=== PATIENT | female | born 1935 | race African-American/Black ===

== ENCOUNTER 2019-08-31 08:48 | Inpatient (IN) | payer OTHER ==
[~2019-08-31] VITALS: Ht 165.1 cm; Wt 49.9 kg
[~2019-08-31 08:48] MED LIST: Aspirin PO; GABA-529; HYDR-3927 PO; Isosorb Dinit/Hydralazine Hcl PO; LOVA40TA73; OLME20TA13
[2019-08-31] MEDS: ACETAMINOPHEN 325MG TABLET PO ONE ×2 (09:37→09:43)
[2019-08-31] MEDS ORDERED: ACETAMINOPHEN 500MG TABLET PO SCH (09:45)
[2019-08-31 10:19] LABS: HEMATOCRIT. 32.1 % (36.0-48.0); HEMOGLOBIN. 10.7 g/dL (12.0-16.0); MEAN CORPUSCULAR HEMOGLOBIN 31.8 pg (28.0-32.0); MEAN CORPUSCULAR VOLUME 95.4 fL (81.0-99.0); PLATELET 168 x1000/uL (130-400); RED BLOOD CELL COUNT 3.37 mill/uL (4.2-5.4); RED CELL DISTRIBUTION WIDTH 16.2 % (11.6-14.6)
[2019-08-31 10:28] LABS: CHLORIDE 92 mEq/L (98-107)
[2019-08-31 10:29] LABS: INR 1.1; PROTHROMBIN TIME 11.5 sec (9.6-11.0)
[2019-08-31 10:43] LABS: PLATELET ESTIMATE NORMAL
[2019-08-31 16:00] VITALS: BP 104/39
[2019-08-31 17:03] VITALS: BP 104/39
[2019-08-31] MEDS ORDERED: ONDANSETRON HCL 4MG/2ML INJ IV PRN (19:15)
[2019-08-31] MEDS ORDERED: PIPERACILLIN/TAZ 3.375G PREMIX 50 ML IV SCH (19:15)
[2019-08-31] MEDS ORDERED: CLONIDINE 0.1MG TABLET PO PRN (19:15)
[2019-08-31] MEDS ORDERED: IPRATROPIUM/ALBUTEROL 0.5-3(2.5)MG/3ML NEB HHN PRN (19:15)
[2019-08-31] MEDS ORDERED: ENOXAPARIN 40MG/0.4ML SYR SUBCUT SCH (19:15)
[2019-08-31] MEDS ORDERED: DOCUSATE SODIUM 100MG CAPSULE PO PRN (19:15)
[2019-08-31] MEDS ORDERED: DEXTROSE 50% WATER 50ML SYRINGE IV PRN (19:45)
[2019-08-31 20:00] VITALS: BP 100/42
[2019-08-31] MEDS: INSULIN LISPRO 100 UNITS/ML SUBCUT SCH (21:00)
[2019-08-31] MEDS: PIPERACILLIN/TAZOBACTAM 2.25 G in DEXTROSE 5% WATER 50 ML IV SCH (21:34)
[2019-08-31] MEDS: GABAPENTIN 100MG CAPSULE PO SCH (21:35)
[2019-08-31] MEDS: ATORVASTATIN CALCIUM 40MG TABLET PO SCH (21:35)
[2019-08-31] MEDS: ENOXAPARIN 30MG/0.3ML SYR SUBCUT SCH (21:35)
[2019-08-31] MEDS: SODIUM CHLORIDE 0.9% INJ 3ML FLUSH IVF SCH (21:36)
[2019-08-31] MEDS: BLOOD SUGAR DIAGNOSTIC STRIP TEST SCH (21:36)
[2019-08-31] MEDS: HYDRALAZINE HCL 50MG TABLET PO SCH (21:36)
[2019-08-31 23:43] LABS: BASOPHILS % 0.3 % (0.0-2.0); EOSINOPHILS % 0.7 % (0.0-5.0); HEMATOCRIT. 31.2 % (36.0-48.0); HEMOGLOBIN. 10.3 g/dL (12.0-16.0); LYMPHOCYTES % 8.9 % (20.0-50.0); MEAN CORPUSCULAR HEMOGLOBIN 31.8 pg (28.0-32.0); MEAN PLATELET VOLUME 8.9 fl (7.4-10.4); MONOCYTES % 8.5 % (2.0-8.0); NEUTROPHILS % 81.6 % (40.0-76.0); PLATELET 143 x1000/uL (130-400); RED BLOOD CELL COUNT 3.25 mill/uL (4.2-5.4); RED CELL DISTRIBUTION WIDTH 15.9 % (11.6-14.6)
[2019-09-01] VITALS: BP 107/32
[2019-09-01 04:00] VITALS: BP 106/30
[2019-09-01] MEDS: SODIUM CHLORIDE 0.9% INJ 3ML FLUSH IVF SCH ×3 (05:47→21:47)
[2019-09-01] MEDS: PIPERACILLIN/TAZOBACTAM 2.25 G in DEXTROSE 5% WATER 50 ML IV SCH ×3 (05:47→21:47)
[2019-09-01] MEDS: GABAPENTIN 100MG CAPSULE PO SCH ×3 (05:47→21:47)
[2019-09-01] MEDS: HYDRALAZINE HCL 50MG TABLET PO SCH ×3 (05:48→21:52)
[2019-09-01] MEDS: BLOOD SUGAR DIAGNOSTIC STRIP TEST SCH ×4 (06:07→22:00)
[2019-09-01 08:00] VITALS: BP 144/48
[2019-09-01] MEDS: ASPIRIN 325MG EC TABLET PO SCH (08:40)
[2019-09-01] MEDS: LOSARTAN POTASSIUM 100 MG TABLET PO SCH (08:41)
[2019-09-01] MEDS: ISOSORBIDE DINITRATE 30MG TABLET PO SCH ×3 (08:41→17:09)
[2019-09-01] MEDS: INSULIN LISPRO 100 UNITS/ML SUBCUT SCH ×5 (08:48→22:00)
[2019-09-01 12:00] VITALS: BP 133/47
[2019-09-01] MEDS ORDERED: HYDROCODONE/ACETAMINOPHEN 5/325MG TABLET PO PRN (14:45)
[2019-09-01] MEDS ORDERED: DIPHENHYDRAMINE 50MG/ML VIAL IV PRN (14:45)
[2019-09-01 16:00] VITALS: BP 158/53
[2019-09-01 16:08] LABS: HEMOGLOBIN. 10.3 g/dL (12.0-16.0); MEAN CORPUSCULAR VOLUME 96.1 fL (81.0-99.0); MEAN PLATELET VOLUME 8.9 fl (7.4-10.4); PLATELET 150 x1000/uL (130-400); RED BLOOD CELL COUNT 3.22 mill/uL (4.2-5.4); RED CELL DISTRIBUTION WIDTH 16.1 % (11.6-14.6)
[2019-09-01 16:16] LABS: CHLORIDE 96 mEq/L (98-107)
[2019-09-01] MEDS ORDERED: VANCOMYCIN 1 G PREMIX 200 ML IV NR (16:30)
[2019-09-01 18:25] LABS: PLATELET ESTIMATE NORMAL
[2019-09-01 20:00] VITALS: BP 99/39
[2019-09-01] MEDS: ENOXAPARIN 30MG/0.3ML SYR SUBCUT SCH (21:46)
[2019-09-01] MEDS: ATORVASTATIN CALCIUM 40MG TABLET PO SCH (21:52)
[2019-09-02] VITALS (7 sets, daily range): BP systolic 98–158; BP diastolic 40–80
[2019-09-02] MEDS: ACETAMINOPHEN 325MG TABLET PO PRN ×2 (02:23→22:09)
[2019-09-02] MEDS: HYDRALAZINE HCL 50MG TABLET PO SCH ×3 (06:00→22:08)
[2019-09-02] MEDS: PIPERACILLIN/TAZOBACTAM 2.25 G in DEXTROSE 5% WATER 50 ML IV SCH ×3 (06:31→21:48)
[2019-09-02] MEDS: SODIUM CHLORIDE 0.9% INJ 3ML FLUSH IVF SCH ×2 (06:31→22:07)
[2019-09-02] MEDS: BLOOD SUGAR DIAGNOSTIC STRIP TEST SCH ×4 (06:32→20:50)
[2019-09-02] MEDS: GABAPENTIN 100MG CAPSULE PO SCH ×3 (06:32→22:09)
[2019-09-02] MEDS: INSULIN LISPRO 100 UNITS/ML SUBCUT SCH ×4 (06:38→22:12)
[2019-09-02 07:45] LABS: HEMATOCRIT. 28.5 % (36.0-48.0); HEMOGLOBIN. 9.5 g/dL (12.0-16.0); MEAN CORPUSCULAR HEMOGLOBIN 31.9 pg (28.0-32.0); MEAN CORPUSCULAR VOLUME 95.6 fL (81.0-99.0); MEAN PLATELET VOLUME 8.8 fl (7.4-10.4); PLATELET 149 x1000/uL (130-400); RED BLOOD CELL COUNT 2.98 mill/uL (4.2-5.4); RED CELL DISTRIBUTION WIDTH 16.7 % (11.6-14.6)
[2019-09-02 08:02] LABS: PHOSPHORUS 3.9 mg/dL (2.5-4.9)
[2019-09-02 08:05] LABS: T4 FREE 0.97 ng/dL (0.76-1.46)
[2019-09-02] MEDS: ISOSORBIDE DINITRATE 30MG TABLET PO SCH ×3 (09:00→17:53)
[2019-09-02] MEDS: LOSARTAN POTASSIUM 100 MG TABLET PO SCH (09:00)
[2019-09-02] MEDS: ASPIRIN 325MG EC TABLET PO SCH (09:15)
[2019-09-02 12:02] LABS: PLATELET ESTIMATE NORMAL
[2019-09-02] MEDS ORDERED: VANCOMYCIN 500 MG PREMIX 100 ML IV SCH (18:00)
[2019-09-02] MEDS ORDERED: LOPERAMIDE HCL 2MG CAPSULE PO NR (19:42)
[2019-09-02] MEDS: ENOXAPARIN 30MG/0.3ML SYR SUBCUT SCH (22:10)
[2019-09-02] MEDS: ATORVASTATIN CALCIUM 40MG TABLET PO SCH (22:11)
[2019-09-03 04:00] VITALS: BP_SYST 140; BP_SYST 163; BP_DIAS 57; BP_DIAS 86
[2019-09-03] MEDS: SODIUM CHLORIDE 0.9% INJ 3ML FLUSH IVF SCH ×3 (05:21→13:38)
[2019-09-03] MEDS: PIPERACILLIN/TAZOBACTAM 2.25 G in DEXTROSE 5% WATER 50 ML IV SCH ×3 (06:11→13:38)
[2019-09-03] MEDS: GABAPENTIN 100MG CAPSULE PO SCH ×2 (06:12→13:24)
[2019-09-03] MEDS: BLOOD SUGAR DIAGNOSTIC STRIP TEST SCH ×2 (06:12→12:02)
[2019-09-03] MEDS: HYDRALAZINE HCL 50MG TABLET PO SCH ×2 (06:12→13:24)
[2019-09-03] MEDS: INSULIN LISPRO 100 UNITS/ML SUBCUT SCH ×2 (06:54→13:23)
[2019-09-03 07:40] LABS: HEMATOCRIT. 30.9 % (36.0-48.0); HEMOGLOBIN. 10.1 g/dL (12.0-16.0); MEAN CORPUSCULAR HEMOGLOBIN 31.3 pg (28.0-32.0); MEAN CORPUSCULAR VOLUME 95.9 fL (81.0-99.0); MEAN PLATELET VOLUME 9.1 fl (7.4-10.4); PLATELET 177 x1000/uL (130-400); RED BLOOD CELL COUNT 3.22 mill/uL (4.2-5.4); RED CELL DISTRIBUTION WIDTH 16.5 % (11.6-14.6)
[2019-09-03 07:51] LABS: PHOSPHORUS 3.8 mg/dL (2.5-4.9)
[2019-09-03 08:00] VITALS: BP 141/56
[2019-09-03] MEDS: LOSARTAN POTASSIUM 100 MG TABLET PO SCH (08:41)
[2019-09-03] MEDS: ISOSORBIDE DINITRATE 30MG TABLET PO SCH ×3 (08:41→13:41)
[2019-09-03] MEDS: ASPIRIN 325MG EC TABLET PO SCH (08:41)
[2019-09-03 10:44] LABS: PLATELET ESTIMATE NORMAL
[2019-09-03 16:31] VITALS: BP 157/48
[2019-09-03] MEDS ORDERED: LACTOBACILLUS GG CAPSULE PO SCH (17:00)
[2019-09-03] MEDS ORDERED: VANCOMYCIN HCL 1000 MG/20 ML ORAL PO SCH (18:00)
[2019-09-03] MEDS ORDERED: VANCOMYCIN HCL 1 GM/VIAL PO SCH (18:00)
== END 2019-09-03 17:15 | disposition home or self-care (01) | DRG 371 ==
LOC: ER 08:48 → 6WST 11:48 → EDBEDREQSVC 11:50 → EDBEDREQ 11:50 → ENRESERV 14:32 → ER 15:33 → 7WST 09-01 17:53 → 8WST 09-03 01:28
PROVIDERS: ADMIT Ophthalmology; ATTEND Ophthalmology
PROC: 5A1D70Z Performance of Urinary Filtration, Intermittent, Less than 6 Hours Per Day (ICD-10-PCS; principal; 2019-08-31)
PROC: 5A1D70Z Performance of Urinary Filtration, Intermittent, Less than 6 Hours Per Day (ICD-10-PCS; 2019-09-02)
DX: A04.72 Enterocolitis due to Clostridium difficile, not specified as recurrent (principal); N18.6 End stage renal disease; I13.2 Hypertensive heart and chronic kidney disease with heart failure and with stage 5 chronic kidney disease, or end stage renal disease; I50.32 Chronic diastolic (congestive) heart failure; E87.1 Hypo-osmolality and hyponatremia; E87.5 Hyperkalemia; E11.22 Type 2 diabetes mellitus with diabetic chronic kidney disease; I25.10 Atherosclerotic heart disease of native coronary artery without angina pectoris; J44.9 Chronic obstructive pulmonary disease, unspecified; D72.829 Elevated white blood cell count, unspecified; Z20.828 Contact with and (suspected) exposure to other viral communicable diseases; I27.20 Pulmonary hypertension, unspecified; K57.90 Diverticulosis of intestine, part unspecified, without perforation or abscess without bleeding; D64.9 Anemia, unspecified; F03.90 Unspecified dementia, unspecified severity, without behavioral disturbance, psychotic disturbance, mood disturbance, and anxiety; I69.321 Dysphasia following cerebral infarction; Z95.1 Presence of aortocoronary bypass graft; Z95.0 Presence of cardiac pacemaker; Z82.49 Family history of ischemic heart disease and other diseases of the circulatory system
CPT/HCPCS: 36415; 71045; 80048; 80053; 80061; 80202; 82962; 83036; 83605; 83735; 84100; 84145; 84439; 84443; 84484; 85025; 86850; 86900; 87493; 93005; 99291; J1650; J1815; J2543; J3370; J7060; U0003-CS

== ENCOUNTER 2021-10-21 08:43 | Inpatient (IN) | payer BC, OTHER ==
[~2021-10-21] VITALS: Ht 154.9 cm; Wt 37.3 kg
[2021-10-21 09:20] LABS: BASOPHILS % 1.2 % (0.0-2.0); EOSINOPHILS % 0.6 % (0.0-5.0); HEMATOCRIT. 33.2 % (36.0-48.0); HEMOGLOBIN. 10.8 g/dL (12.0-16.0); LYMPHOCYTES % 16.4 % (20.0-50.0); MEAN CORPUSCULAR HEMOGLOBIN 32.6 pg (28.0-32.0); MEAN CORPUSCULAR VOLUME 100.5 fL (81.0-99.0); MEAN PLATELET VOLUME 7.6 fl (7.4-10.4); MONOCYTES % 12.6 % (2.0-8.0); NEUTROPHILS % 69.2 % (40.0-76.0); PLATELET 301 x1000/uL (130-400); RED BLOOD CELL COUNT 3.31 mill/uL (4.2-5.4); RED CELL DISTRIBUTION WIDTH 16.4 % (11.6-14.6)
[2021-10-21 09:29] LABS: CHLORIDE 95 mEq/L (98-107)
[2021-10-21 10:09] LABS: CREATINE KINASE 134 IU/L (26-192)
[2021-10-21] MEDS ORDERED: ACETAMINOPHEN 325MG TABLET PO PRN ×2 (16:30→18:45)
[2021-10-21] MEDS ORDERED: ONDANSETRON HCL 4MG/2ML INJ IV PRN (16:30)
[2021-10-21] MEDS ORDERED: DEXTROSE 50% WATER 50ML SYRINGE IV PRN (17:00)
[2021-10-21] MEDS: DEXT 5%/0.45% NACL 1000ML 1,000 ML IV SCH (17:00)
[2021-10-21] MEDS: BLOOD SUGAR DIAGNOSTIC STRIP TEST SCH ×3 (17:07→21:00)
[2021-10-21 17:35] VITALS: BP 96/43
[2021-10-21] MEDS ORDERED: PIPERACILLIN/TAZ 3.375G PREMIX 50 ML IV SCH (18:45)
[2021-10-21] MEDS ORDERED: TRAMADOL 50MG TABLET PO PRN (19:00)
[2021-10-21] MEDS ORDERED: NALOXONE HCL 0.4MG/ML VIAL IV PRN (19:15)
[2021-10-21] MEDS: ENOXAPARIN 30MG/0.3ML SYR SUBCUT SCH (20:32)
[2021-10-21] MEDS: ATORVASTATIN CALCIUM 40MG TABLET PO SCH (20:32)
[2021-10-21] MEDS: FAMOTIDINE 20MG TABLET PO SCH (20:32)
[2021-10-21 20:47] VITALS: BP 124/46
[2021-10-21] MEDS ORDERED: ACETAMINOPHEN 325MG SUPP PR PRN (21:00)
[2021-10-21 21:07] LABS: HEPATITIS B SURFACE ANTIGEN NEGATIVE
[2021-10-21] MEDS: PIPERACILLIN/TAZOBACTAM 3.375 G in DEXTROSE 5% WATER 50 ML IV SCH (21:14)
[2021-10-22 00:38] VITALS: BP 96/38
[2021-10-22 04:00] VITALS: BP 104/36
[2021-10-22 06:48] LABS: HEMATOCRIT. 32.5 % (36.0-48.0); MEAN CORPUSCULAR HEMOGLOBIN 33.6 pg (28.0-32.0); MEAN CORPUSCULAR VOLUME 99.1 fL (81.0-99.0); MEAN PLATELET VOLUME 8.1 fl (7.4-10.4); PLATELET 304 x1000/uL (130-400); RED BLOOD CELL COUNT 3.28 mill/uL (4.2-5.4)
[2021-10-22] MEDS: BLOOD SUGAR DIAGNOSTIC STRIP TEST SCH ×4 (07:01→21:00)
[2021-10-22 08:00] VITALS: BP 107/44
[2021-10-22] MEDS: ISOSORBIDE DINITRATE 30MG TABLET PO SCH ×2 (09:00→11:55)
[2021-10-22] MEDS: GABAPENTIN 300MG CAPSULE PO SCH ×3 (09:00→18:01)
[2021-10-22] MEDS ORDERED: LOSARTAN POTASSIUM 100 MG TABLET PO SCH (09:00)
[2021-10-22] MEDS: PIPERACILLIN/TAZOBACTAM 3.375 G in DEXTROSE 5% WATER 50 ML IV SCH ×2 (11:51→21:32)
[2021-10-22] MEDS: ASPIRIN 325MG EC TABLET PO SCH (11:52)
[2021-10-22 12:00] VITALS: BP 116/42
[2021-10-22] MEDS: ACETAMINOPHEN 325MG TABLET PO PRN (12:00)
[2021-10-22 16:00] VITALS: BP 115/68
[2021-10-22 17:47] LABS: PLATELET ESTIMATE NORMAL
[2021-10-22] MEDS: DEXT 5%/0.45% NACL 1000ML 1,000 ML IV SCH (18:01)
[2021-10-22 20:00] VITALS: BP 105/40
[2021-10-22] MEDS: ENOXAPARIN 30MG/0.3ML SYR SUBCUT SCH (21:32)
[2021-10-22] MEDS: FAMOTIDINE 20MG TABLET PO SCH (21:32)
[2021-10-22] MEDS: ATORVASTATIN CALCIUM 40MG TABLET PO SCH (21:32)
[2021-10-23] VITALS: BP 104/33
[2021-10-23] MEDS: DEXT 5%/0.45% NACL 1000ML 1,000 ML IV SCH (03:47)
[2021-10-23 04:00] VITALS: BP 105/42
[2021-10-23 07:04] LABS: HEMATOCRIT. 31.1 % (36.0-48.0); HEMOGLOBIN. 10.5 g/dL (12.0-16.0); MEAN CORPUSCULAR HEMOGLOBIN 33.3 pg (28.0-32.0); MEAN CORPUSCULAR VOLUME 98.2 fL (81.0-99.0); MEAN PLATELET VOLUME 8.5 fl (7.4-10.4); PLATELET 238 x1000/uL (130-400); RED BLOOD CELL COUNT 3.17 mill/uL (4.2-5.4); RED CELL DISTRIBUTION WIDTH 16.3 % (11.6-14.6)
[2021-10-23] MEDS: BLOOD SUGAR DIAGNOSTIC STRIP TEST SCH ×4 (07:26→20:44)
[2021-10-23 08:00] VITALS: BP 99/57
[2021-10-23 08:03] LABS: PHOSPHORUS 2.7 mg/dL (2.5-4.9)
[2021-10-23] MEDS ORDERED: AMLODIPINE 2.5MG TABLET PO SCH (09:00)
[2021-10-23] MEDS: PIPERACILLIN/TAZOBACTAM 3.375 G in DEXTROSE 5% WATER 50 ML IV SCH ×2 (09:17→20:43)
[2021-10-23] MEDS: ASPIRIN 325MG EC TABLET PO SCH (09:17)
[2021-10-23] MEDS: GABAPENTIN 300MG CAPSULE PO SCH ×3 (09:20→17:44)
[2021-10-23 12:00] VITALS: BP 118/42
[2021-10-23 16:00] VITALS: BP 106/42
[2021-10-23 17:07] LABS: PLATELET ESTIMATE NORMAL
[2021-10-23 20:00] VITALS: BP 113/46
[2021-10-23] MEDS: FAMOTIDINE 20MG TABLET PO SCH (20:43)
[2021-10-23] MEDS: ATORVASTATIN CALCIUM 40MG TABLET PO SCH (20:43)
[2021-10-23] MEDS: ENOXAPARIN 30MG/0.3ML SYR SUBCUT SCH (20:45)
[2021-10-24] VITALS: BP 168/42
[2021-10-24 04:00] VITALS: BP 107/44
[2021-10-24 07:26] LABS: HEMATOCRIT. 31.1 % (36.0-48.0); HEMOGLOBIN. 10.7 g/dL (12.0-16.0); MEAN CORPUSCULAR HEMOGLOBIN 33.5 pg (28.0-32.0); MEAN CORPUSCULAR VOLUME 97.7 fL (81.0-99.0); MEAN PLATELET VOLUME 8.5 fl (7.4-10.4); PLATELET 248 x1000/uL (130-400); RED BLOOD CELL COUNT 3.19 mill/uL (4.2-5.4); RED CELL DISTRIBUTION WIDTH 16.4 % (11.6-14.6)
[2021-10-24 07:33] LABS: PHOSPHORUS 3.3 mg/dL (2.5-4.9)
[2021-10-24] MEDS: BLOOD SUGAR DIAGNOSTIC STRIP TEST SCH ×4 (07:40→20:25)
[2021-10-24 08:00] VITALS: BP 105/40
[2021-10-24] MEDS: GABAPENTIN 300MG CAPSULE PO SCH ×3 (09:18→17:09)
[2021-10-24] MEDS: ASPIRIN 325MG EC TABLET PO SCH (09:18)
[2021-10-24 10:33] LABS: PLATELET ESTIMATE NORMAL
[2021-10-24 12:00] VITALS: BP 132/46
[2021-10-24] MEDS: PIPERACILLIN/TAZOBACTAM 3.375 G in DEXTROSE 5% WATER 50 ML IV SCH ×2 (15:06→20:24)
[2021-10-24 16:10] VITALS: BP 148/52
[2021-10-24 20:00] VITALS: BP 122/46
[2021-10-24] MEDS: FAMOTIDINE 20MG TABLET PO SCH (20:24)
[2021-10-24] MEDS: ATORVASTATIN CALCIUM 40MG TABLET PO SCH (20:24)
[2021-10-24] MEDS: ENOXAPARIN 30MG/0.3ML SYR SUBCUT SCH (20:24)
[2021-10-25] VITALS: BP 98/53
[2021-10-25 04:00] VITALS: BP 125/48
[2021-10-25 06:49] LABS: HEMATOCRIT. 35.1 % (36.0-48.0); HEMOGLOBIN. 11.7 g/dL (12.0-16.0); MEAN CORPUSCULAR HEMOGLOBIN 33.1 pg (28.0-32.0); MEAN CORPUSCULAR VOLUME 99.1 fL (81.0-99.0); MEAN PLATELET VOLUME 8.1 fl (7.4-10.4); PLATELET 284 x1000/uL (130-400); RED BLOOD CELL COUNT 3.55 mill/uL (4.2-5.4); RED CELL DISTRIBUTION WIDTH 16.1 % (11.6-14.6)
[2021-10-25] MEDS: BLOOD SUGAR DIAGNOSTIC STRIP TEST SCH ×4 (06:49→21:00)
[2021-10-25 07:17] LABS: PHOSPHORUS 2.7 mg/dL (2.5-4.9)
[2021-10-25] MEDS: GABAPENTIN 300MG CAPSULE PO SCH ×3 (08:47→17:00)
[2021-10-25] MEDS: ASPIRIN 325MG EC TABLET PO SCH (08:47)
[2021-10-25] MEDS: PIPERACILLIN/TAZOBACTAM 3.375 G in DEXTROSE 5% WATER 50 ML IV SCH ×2 (08:48→23:04)
[2021-10-25 12:00] VITALS: BP 157/62
[2021-10-25 12:48] LABS: PLATELET ESTIMATE NORMAL
[2021-10-25 16:00] VITALS: BP 131/113
[2021-10-25 20:00] VITALS: BP 132/54
[2021-10-25] MEDS: FAMOTIDINE 20MG TABLET PO SCH (23:04)
[2021-10-25] MEDS: ATORVASTATIN CALCIUM 40MG TABLET PO SCH (23:04)
[2021-10-25] MEDS: ENOXAPARIN 30MG/0.3ML SYR SUBCUT SCH (23:05)
[2021-10-26 00:17] VITALS: BP 116/46
[2021-10-26 04:00] VITALS: BP 147/53
[2021-10-26] MEDS: BLOOD SUGAR DIAGNOSTIC STRIP TEST SCH ×4 (06:46→21:59)
[2021-10-26 08:00] VITALS: BP 126/50
[2021-10-26] MEDS: GABAPENTIN 300MG CAPSULE PO SCH ×3 (09:22→17:23)
[2021-10-26] MEDS: PIPERACILLIN/TAZOBACTAM 3.375 G in DEXTROSE 5% WATER 50 ML IV SCH (09:22)
[2021-10-26] MEDS: ASPIRIN 325MG EC TABLET PO SCH (09:22)
[2021-10-26 12:00] VITALS: BP 158/57
[2021-10-26 16:00] VITALS: BP 139/56
[2021-10-26] MEDS: ONDANSETRON HCL 4MG/2ML INJ IV PRN (17:23)
[2021-10-26 20:00] VITALS: BP 136/45
[2021-10-26] MEDS: FAMOTIDINE 20MG TABLET PO SCH (21:59)
[2021-10-26] MEDS: ENOXAPARIN 30MG/0.3ML SYR SUBCUT SCH (21:59)
[2021-10-26] MEDS: ATORVASTATIN CALCIUM 40MG TABLET PO SCH (21:59)
[2021-10-27] VITALS (7 sets, daily range): BP systolic 128–171; BP diastolic 39–73
[2021-10-27 06:29] LABS: HEMATOCRIT. 32.3 % (36.0-48.0); HEMOGLOBIN. 10.8 g/dL (12.0-16.0); MEAN CORPUSCULAR HEMOGLOBIN 33.1 pg (28.0-32.0); MEAN CORPUSCULAR VOLUME 98.5 fL (81.0-99.0); MEAN PLATELET VOLUME 8.6 fl (7.4-10.4); PLATELET 249 x1000/uL (130-400); RED BLOOD CELL COUNT 3.28 mill/uL (4.2-5.4); RED CELL DISTRIBUTION WIDTH 16.1 % (11.6-14.6)
[2021-10-27] MEDS: BLOOD SUGAR DIAGNOSTIC STRIP TEST SCH ×5 (07:40→20:46)
[2021-10-27 08:06] LABS: PHOSPHORUS 3.3 mg/dL (2.5-4.9)
[2021-10-27] MEDS: GABAPENTIN 300MG CAPSULE PO SCH ×3 (09:12→17:40)
[2021-10-27] MEDS: ASPIRIN 325MG EC TABLET PO SCH (09:12)
[2021-10-27 11:28] LABS: PLATELET ESTIMATE NORMAL
[2021-10-27] MEDS ORDERED: LOPERAMIDE HCL 2MG CAPSULE PO ONE (11:30)
[2021-10-27] MEDS ORDERED: LOPERAMIDE HCL 2MG CAPSULE PO SCH (11:40)
[2021-10-27] MEDS: FOLIC ACID/VITAMIN B COMP W-C TABLET PO SCH (17:40)
[2021-10-27] MEDS: ENOXAPARIN 30MG/0.3ML SYR SUBCUT SCH (21:13)
[2021-10-27] MEDS: ATORVASTATIN CALCIUM 40MG TABLET PO SCH (21:14)
[2021-10-27] MEDS: FAMOTIDINE 20MG TABLET PO SCH (21:14)
[2021-10-28] VITALS (7 sets, daily range): BP systolic 94–147; BP diastolic 46–76
[2021-10-28 06:41] LABS: HEMATOCRIT. 31.8 % (36.0-48.0); HEMOGLOBIN. 10.7 g/dL (12.0-16.0); MEAN CORPUSCULAR HEMOGLOBIN 33.2 pg (28.0-32.0); MEAN CORPUSCULAR VOLUME 98.5 fL (81.0-99.0); MEAN PLATELET VOLUME 8.4 fl (7.4-10.4); PLATELET 225 x1000/uL (130-400); RED BLOOD CELL COUNT 3.23 mill/uL (4.2-5.4); RED CELL DISTRIBUTION WIDTH 15.8 % (11.6-14.6)
[2021-10-28] MEDS: BLOOD SUGAR DIAGNOSTIC STRIP TEST SCH ×4 (08:38→21:00)
[2021-10-28] MEDS: FOLIC ACID/VITAMIN B COMP W-C TABLET PO SCH (08:49)
[2021-10-28] MEDS: ASPIRIN 325MG EC TABLET PO SCH (08:49)
[2021-10-28] MEDS: GABAPENTIN 300MG CAPSULE PO SCH ×3 (08:49→16:20)
[2021-10-28 10:56] LABS: PHOSPHORUS 3.6 mg/dL (2.5-4.9)
[2021-10-28 17:08] LABS: PLATELET ESTIMATE NORMAL
[2021-10-28] MEDS: ACETAMINOPHEN 325MG TABLET PO PRN (19:04)
[2021-10-28] MEDS: ONDANSETRON HCL 4MG/2ML INJ IV PRN (19:26)
[2021-10-28] MEDS: ATORVASTATIN CALCIUM 40MG TABLET PO SCH (22:39)
[2021-10-28] MEDS: FAMOTIDINE 20MG TABLET PO SCH (22:39)
[2021-10-28] MEDS: ENOXAPARIN 30MG/0.3ML SYR SUBCUT SCH (22:40)
[2021-10-29] VITALS: BP 136/60
[2021-10-29 04:00] VITALS: BP 122/60
[2021-10-29 06:33] LABS: HEMATOCRIT. 31.8 % (36.0-48.0); HEMOGLOBIN. 10.6 g/dL (12.0-16.0); MEAN CORPUSCULAR HEMOGLOBIN 32.6 pg (28.0-32.0); MEAN CORPUSCULAR VOLUME 97.7 fL (81.0-99.0); MEAN PLATELET VOLUME 8.6 fl (7.4-10.4); PLATELET 230 x1000/uL (130-400); RED BLOOD CELL COUNT 3.25 mill/uL (4.2-5.4); RED CELL DISTRIBUTION WIDTH 15.8 % (11.6-14.6)
[2021-10-29 08:00] VITALS: BP 121/54
[2021-10-29 08:24] LABS: PHOSPHORUS 3.6 mg/dL (2.5-4.9)
[2021-10-29] MEDS: GABAPENTIN 300MG CAPSULE PO SCH ×3 (09:22→18:54)
[2021-10-29] MEDS: FOLIC ACID/VITAMIN B COMP W-C TABLET PO SCH (09:22)
[2021-10-29] MEDS: ASPIRIN 325MG EC TABLET PO SCH (09:22)
[2021-10-29] MEDS: BLOOD SUGAR DIAGNOSTIC STRIP TEST SCH ×4 (09:24→23:00)
[2021-10-29] MEDS: ACETAMINOPHEN 325MG TABLET PO PRN (09:26)
[2021-10-29 10:52] LABS: PLATELET ESTIMATE NORMAL
[2021-10-29 12:00] VITALS: BP 174/61
[2021-10-29] MEDS: CLONIDINE 0.1MG TABLET PO PRN (14:26)
[2021-10-29 16:00] VITALS: BP 94/32
[2021-10-29] MEDS: ONDANSETRON HCL 4MG/2ML INJ IV PRN (19:01)
[2021-10-29 20:00] VITALS: BP 150/48
[2021-10-30] MEDS: ENOXAPARIN 30MG/0.3ML SYR SUBCUT SCH ×2 (00:20→20:54)
[2021-10-30] MEDS: FAMOTIDINE 20MG TABLET PO SCH ×2 (00:21→20:53)
[2021-10-30] MEDS: ACETAMINOPHEN 325MG TABLET PO PRN ×3 (00:24→04:04)
[2021-10-30] MEDS: ATORVASTATIN CALCIUM 40MG TABLET PO SCH ×2 (00:27→20:53)
[2021-10-30 04:00] VITALS: BP 120/63
[2021-10-30 06:51] LABS: BASOPHILS % 0.9 % (0.0-2.0); HEMATOCRIT. 27.6 % (36.0-48.0); HEMOGLOBIN. 9.5 g/dL (12.0-16.0); LYMPHOCYTES % 23.7 % (20.0-50.0); MEAN CORPUSCULAR HEMOGLOBIN 33.4 pg (28.0-32.0); MEAN CORPUSCULAR VOLUME 96.8 fL (81.0-99.0); MEAN PLATELET VOLUME 8.7 fl (7.4-10.4); MONOCYTES % 14.3 % (2.0-8.0); NEUTROPHILS % 60.1 % (40.0-76.0); PLATELET 234 x1000/uL (130-400); RED BLOOD CELL COUNT 2.85 mill/uL (4.2-5.4); RED CELL DISTRIBUTION WIDTH 15.9 % (11.6-14.6)
[2021-10-30 07:17] LABS: CHLORIDE 98 mEq/L (98-107)
[2021-10-30 07:24] LABS: PHOSPHORUS 3.1 mg/dL (2.5-4.9)
[2021-10-30 08:00] VITALS: BP 130/70
[2021-10-30] MEDS: BLOOD SUGAR DIAGNOSTIC STRIP TEST SCH ×4 (08:51→20:58)
[2021-10-30] MEDS: ASPIRIN 325MG EC TABLET PO SCH (08:51)
[2021-10-30] MEDS: FOLIC ACID/VITAMIN B COMP W-C TABLET PO SCH (08:51)
[2021-10-30] MEDS: GABAPENTIN 300MG CAPSULE PO SCH ×2 (08:51→12:31)
[2021-10-30 12:00] VITALS: BP 122/88
[2021-10-30 16:00] VITALS: BP 136/86
[2021-10-30] MEDS ORDERED: GABAPENTIN 100MG CAPSULE PO SCH (17:00)
[2021-10-30 20:00] VITALS: BP 139/67
[2021-10-30 23:50] VITALS: BP 171/57
[2021-10-30] MEDS: CLONIDINE 0.1MG TABLET PO PRN (23:51)
[2021-10-31] MEDS: ONDANSETRON HCL 4MG/2ML INJ IV PRN ×2 (03:31→12:58)
[2021-10-31] MEDS: ACETAMINOPHEN 325MG TABLET PO PRN ×2 (03:55→14:02)
[2021-10-31 04:00] VITALS: BP 157/37
[2021-10-31 08:00] VITALS: BP 108/66
[2021-10-31] MEDS: BLOOD SUGAR DIAGNOSTIC STRIP TEST SCH ×4 (09:00→21:00)
[2021-10-31] MEDS: LOSARTAN POTASSIUM 25 MG TABLET PO SCH (09:00)
[2021-10-31] MEDS: ASPIRIN 325MG EC TABLET PO SCH (09:53)
[2021-10-31] MEDS: FOLIC ACID/VITAMIN B COMP W-C TABLET PO SCH (09:53)
[2021-10-31 12:00] VITALS: BP 116/70
[2021-10-31] MEDS: CLONIDINE 0.1MG TABLET PO PRN (15:26)
[2021-10-31 16:00] VITALS: BP 161/69
[2021-10-31] MEDS ORDERED: LACTULOSE 20G/30ML UDC PO NR (16:30)
[2021-10-31 20:22] VITALS: BP 149/78
[2021-10-31] MEDS: ENOXAPARIN 30MG/0.3ML SYR SUBCUT SCH (21:36)
[2021-10-31] MEDS: ATORVASTATIN CALCIUM 40MG TABLET PO SCH (21:36)
[2021-10-31] MEDS: FAMOTIDINE 20MG TABLET PO SCH (22:27)
[2021-11-01] VITALS: BP 147/72
[2021-11-01 04:00] VITALS: BP 134/51
[2021-11-01 08:00] VITALS: BP 109/49
[2021-11-01] MEDS: ASPIRIN 325MG EC TABLET PO SCH (08:50)
[2021-11-01] MEDS: FOLIC ACID/VITAMIN B COMP W-C TABLET PO SCH (08:50)
[2021-11-01] MEDS: LOSARTAN POTASSIUM 25 MG TABLET PO SCH (08:50)
[2021-11-01] MEDS: BLOOD SUGAR DIAGNOSTIC STRIP TEST SCH ×4 (08:59→21:52)
[2021-11-01] MEDS ORDERED: DOCUSATE SODIUM 250MG CAPSULE PO SCH (09:00)
[2021-11-01 12:00] VITALS: BP 137/62
[2021-11-01 16:32] LABS: PHOSPHORUS 5.4 mg/dL (2.5-4.9)
[2021-11-01] MEDS: DOCUSATE SODIUM 250MG CAPSULE PO SCH (16:54)
[2021-11-01 20:00] VITALS: BP 100/36
[2021-11-01] MEDS: ATORVASTATIN CALCIUM 40MG TABLET PO SCH (21:50)
[2021-11-01] MEDS: FAMOTIDINE 20MG TABLET PO SCH (21:50)
[2021-11-01] MEDS: ENOXAPARIN 30MG/0.3ML SYR SUBCUT SCH (21:50)
[2021-11-02 00:30] VITALS: BP 137/58
[2021-11-02 01:47] LABS: HEMATOCRIT. 26.5 % (36.0-48.0); HEMOGLOBIN. 9.1 g/dL (12.0-16.0); MEAN CORPUSCULAR HEMOGLOBIN 33.4 pg (28.0-32.0); MEAN CORPUSCULAR VOLUME 97.4 fL (81.0-99.0); MEAN PLATELET VOLUME 8.4 fl (7.4-10.4); PLATELET 238 x1000/uL (130-400); RED BLOOD CELL COUNT 2.72 mill/uL (4.2-5.4); RED CELL DISTRIBUTION WIDTH 15.8 % (11.6-14.6)
[2021-11-02 02:55] LABS: PLATELET ESTIMATE NORMAL
[2021-11-02] MEDS: ACETAMINOPHEN 325MG TABLET PO PRN (04:08)
[2021-11-02 08:00] VITALS: BP 144/61
[2021-11-02] MEDS: DOCUSATE SODIUM 250MG CAPSULE PO SCH ×2 (08:58→17:59)
[2021-11-02] MEDS: FOLIC ACID/VITAMIN B COMP W-C TABLET PO SCH (08:58)
[2021-11-02] MEDS: LOSARTAN POTASSIUM 25 MG TABLET PO SCH (08:58)
[2021-11-02] MEDS: ASPIRIN 325MG EC TABLET PO SCH (08:58)
[2021-11-02] MEDS: BLOOD SUGAR DIAGNOSTIC STRIP TEST SCH ×4 (09:03→21:00)
[2021-11-02] MEDS ORDERED: CEFTRIAXONE 1 G PREMIX 50 ML IV SCH (19:45)
[2021-11-02 20:00] VITALS: BP_SYST 120; BP_SYST 147; BP_DIAS 52; BP_DIAS 58
[2021-11-02] MEDS: FAMOTIDINE 20MG TABLET PO SCH (20:59)
[2021-11-02] MEDS: ATORVASTATIN CALCIUM 40MG TABLET PO SCH (20:59)
[2021-11-02] MEDS: ENOXAPARIN 30MG/0.3ML SYR SUBCUT SCH (21:00)
[2021-11-02] MEDS: CEFTRIAXONE 1,000 MG in DEXTROSE 5% WATER 50 ML IV SCH (21:49)
[2021-11-03] VITALS (7 sets, daily range): BP systolic 108–144; BP diastolic 51–79
[2021-11-03 07:57] LABS: HEMATOCRIT. 25.1 % (36.0-48.0); HEMOGLOBIN. 8.4 g/dL (12.0-16.0); MEAN CORPUSCULAR HEMOGLOBIN 32.8 pg (28.0-32.0); MEAN CORPUSCULAR VOLUME 98.2 fL (81.0-99.0); PLATELET 299 x1000/uL (130-400); RED BLOOD CELL COUNT 2.55 mill/uL (4.2-5.4); RED CELL DISTRIBUTION WIDTH 16.6 % (11.6-14.6)
[2021-11-03] MEDS: LOSARTAN POTASSIUM 25 MG TABLET PO SCH (09:00)
[2021-11-03] MEDS: BLOOD SUGAR DIAGNOSTIC STRIP TEST SCH ×4 (09:00→21:00)
[2021-11-03] MEDS: DOCUSATE SODIUM 250MG CAPSULE PO SCH ×2 (09:00→16:43)
[2021-11-03] MEDS: FOLIC ACID/VITAMIN B COMP W-C TABLET PO SCH (09:48)
[2021-11-03] MEDS: ASPIRIN 325MG EC TABLET PO SCH (09:48)
[2021-11-03 12:42] LABS: PLATELET ESTIMATE NORMAL
[2021-11-03] MEDS ORDERED: NALOXONE HCL 0.4MG/ML VIAL IV PRN (14:00)
[2021-11-03] MEDS: SERTRALINE HCL 25MG TABLET PO SCH (14:40)
[2021-11-03] MEDS: CEFTRIAXONE 1,000 MG in DEXTROSE 5% WATER 50 ML IV SCH (21:36)
[2021-11-03] MEDS: ATORVASTATIN CALCIUM 40MG TABLET PO SCH (21:37)
[2021-11-03] MEDS: FAMOTIDINE 20MG TABLET PO SCH (21:37)
[2021-11-04 04:00] VITALS: BP 140/62
[2021-11-04 06:29] LABS: BASOPHILS % 0.1 % (0.0-2.0); EOSINOPHILS % 0.3 % (0.0-5.0); HEMATOCRIT. 23.9 % (36.0-48.0); HEMOGLOBIN. 8.3 g/dL (12.0-16.0); MEAN CORPUSCULAR HEMOGLOBIN 33.6 pg (28.0-32.0); MEAN CORPUSCULAR VOLUME 96.6 fL (81.0-99.0); MEAN PLATELET VOLUME 8.9 fl (7.4-10.4); MONOCYTES % 10.2 % (2.0-8.0); NEUTROPHILS % 77.4 % (40.0-76.0); PLATELET 277 x1000/uL (130-400); RED BLOOD CELL COUNT 2.47 mill/uL (4.2-5.4)
[2021-11-04 06:38] LABS: CHLORIDE 99 mEq/L (98-107)
[2021-11-04 06:46] LABS: PHOSPHORUS 4.1 mg/dL (2.5-4.9)
[2021-11-04 08:00] VITALS: BP 120/56
[2021-11-04] MEDS: LOSARTAN POTASSIUM 25 MG TABLET PO SCH (08:43)
[2021-11-04] MEDS: SERTRALINE HCL 25MG TABLET PO SCH (08:43)
[2021-11-04] MEDS: FOLIC ACID/VITAMIN B COMP W-C TABLET PO SCH (08:43)
[2021-11-04] MEDS: DOCUSATE SODIUM 100MG CAPSULE PO PRN (08:43)
[2021-11-04] MEDS: BLOOD SUGAR DIAGNOSTIC STRIP TEST SCH ×4 (08:47→21:00)
[2021-11-04] MEDS: DOCUSATE SODIUM 250MG CAPSULE PO SCH ×2 (08:47→17:00)
[2021-11-04] MEDS: TRAMADOL 50MG TABLET PO PRN (16:47)
[2021-11-04 20:16] VITALS: BP 91/36
[2021-11-04] MEDS: EPOETIN ALFA-EPBX 4,000 UNIT/ML VIAL SUBCUT SCH (22:13)
[2021-11-04] MEDS: CEFTRIAXONE 1,000 MG in DEXTROSE 5% WATER 50 ML IV SCH (22:13)
[2021-11-04] MEDS: FAMOTIDINE 20MG TABLET PO SCH (22:14)
[2021-11-04] MEDS: ATORVASTATIN CALCIUM 40MG TABLET PO SCH (22:14)
[2021-11-04 23:58] VITALS: BP 94/23
[2021-11-05 04:00] VITALS: BP 101/39
[2021-11-05 06:00] LABS: CHLORIDE 94 mEq/L (98-107)
[2021-11-05 06:07] LABS: PHOSPHORUS 4.1 mg/dL (2.5-4.9)
[2021-11-05 06:13] LABS: MEAN CORPUSCULAR HEMOGLOBIN 33.7 pg (28.0-32.0); MEAN CORPUSCULAR VOLUME 99.2 fL (81.0-99.0); MEAN PLATELET VOLUME 8.6 fl (7.4-10.4); PLATELET 293 x1000/uL (130-400); RED BLOOD CELL COUNT 1.93 mill/uL (4.2-5.4); RED CELL DISTRIBUTION WIDTH 16.4 % (11.6-14.6)
[2021-11-05 08:00] VITALS: BP 107/49
[2021-11-05 08:20] LABS: HEMOGLOBIN. 6.5 g/dL (12.0-16.0)
[2021-11-05 08:21] LABS: HEMATOCRIT. 19.2 % (36.0-48.0)
[2021-11-05] MEDS: FOLIC ACID/VITAMIN B COMP W-C TABLET PO SCH (09:12)
[2021-11-05] MEDS: TRAMADOL 50MG TABLET PO PRN (09:12)
[2021-11-05] MEDS: SERTRALINE HCL 25MG TABLET PO SCH (09:12)
[2021-11-05] MEDS: DOCUSATE SODIUM 250MG CAPSULE PO SCH ×2 (09:12→17:46)
[2021-11-05] MEDS: LOSARTAN POTASSIUM 25 MG TABLET PO SCH (09:12)
[2021-11-05] MEDS: BLOOD SUGAR DIAGNOSTIC STRIP TEST SCH ×4 (09:13→20:42)
[2021-11-05 11:34] LABS: PLATELET ESTIMATE NORMAL
[2021-11-05 12:00] VITALS: BP 119/58
[2021-11-05] MEDS ORDERED: LEVOFLOXACIN 500MG TABLET PO NR (14:00)
[2021-11-05 14:43] LABS: RED BLOOD CELL COUNT 2.08 mill/uL (4.2-5.4); RED CELL DISTRIBUTION WIDTH 16.1 % (11.6-14.6)
[2021-11-05 14:48] LABS: MEAN CORPUSCULAR HEMOGLOBIN 33.9 pg (28.0-32.0); MEAN CORPUSCULAR VOLUME 99.2 fL (81.0-99.0); PLATELET 327 x1000/uL (130-400)
[2021-11-05 14:51] LABS: HEMATOCRIT 20.4 % (36.0-48.0)
[2021-11-05 16:00] VITALS: BP 100/45
[2021-11-05 16:09] LABS: TOTAL IRON BINDING CAPACITY 109 ug/dL (250-450)
[2021-11-05 16:36] LABS: VITAMIN B12 SERUM >2000 pg/mL pg/mL (211-911)
[2021-11-05 16:50] LABS: FERRITIN 3078 ng/mL (10-291)
[2021-11-05 20:00] VITALS: BP 100/47
[2021-11-05] MEDS: ATORVASTATIN CALCIUM 40MG TABLET PO SCH (20:44)
[2021-11-06] VITALS (8 sets, daily range): BP systolic 103–123; BP diastolic 39–56
[2021-11-06 06:26] LABS: MEAN CORPUSCULAR VOLUME 99.7 fL (81.0-99.0); MEAN PLATELET VOLUME 8.6 fl (7.4-10.4); PLATELET 349 x1000/uL (130-400); RED BLOOD CELL COUNT 1.95 mill/uL (4.2-5.4); RED CELL DISTRIBUTION WIDTH 16.3 % (11.6-14.6)
[2021-11-06 06:33] LABS: HEMATOCRIT. 19.4 % (36.0-48.0); HEMOGLOBIN. 6.6 g/dL (12.0-16.0)
[2021-11-06 06:55] LABS: PHOSPHORUS 4.6 mg/dL (2.5-4.9)
[2021-11-06] MEDS: SERTRALINE HCL 25MG TABLET PO SCH (08:18)
[2021-11-06] MEDS: FOLIC ACID/VITAMIN B COMP W-C TABLET PO SCH (08:18)
[2021-11-06] MEDS: DOCUSATE SODIUM 250MG CAPSULE PO SCH ×2 (08:18→16:41)
[2021-11-06] MEDS: PANTOPRAZOLE SODIUM 40 MG/VIAL IV SCH ×2 (08:18→08:21)
[2021-11-06] MEDS: LOSARTAN POTASSIUM 25 MG TABLET PO SCH (08:18)
[2021-11-06] MEDS: BLOOD SUGAR DIAGNOSTIC STRIP TEST SCH ×4 (09:00→21:00)
[2021-11-06] MEDS: DOCUSATE SODIUM 100MG CAPSULE PO PRN (16:40)
[2021-11-06 17:36] LABS: INR 1.1; PROTHROMBIN TIME 11.5 sec (9.6-11.0)
[2021-11-06 20:58] LABS: NUCLEATED RED BLOOD CELLS 1 /100 WBC; PLATELET ESTIMATE NORMAL
[2021-11-06] MEDS: ATORVASTATIN CALCIUM 40MG TABLET PO SCH (22:07)
[2021-11-06] MEDS: EPOETIN ALFA-EPBX 4,000 UNIT/ML VIAL SUBCUT SCH (22:40)
[2021-11-06 23:47] LABS: HEMATOCRIT 26.2 % (36.0-48.0); HEMOGLOBIN 9.2 g/dL (12.0-16.0)
[2021-11-07] VITALS (8 sets, daily range): BP systolic 100–155; BP diastolic 45–69
[2021-11-07 06:49] LABS: BASOPHILS % 0.1 % (0.0-2.0); EOSINOPHILS % 0.5 % (0.0-5.0); HEMATOCRIT. 29.9 % (36.0-48.0); LYMPHOCYTES % 7.8 % (20.0-50.0); MEAN CORPUSCULAR HEMOGLOBIN 32.9 pg (28.0-32.0); MEAN CORPUSCULAR VOLUME 98.7 fL (81.0-99.0); MEAN PLATELET VOLUME 8.3 fl (7.4-10.4); MONOCYTES % 10.3 % (2.0-8.0); NEUTROPHILS % 81.3 % (40.0-76.0); PLATELET 371 x1000/uL (130-400); RED BLOOD CELL COUNT 3.03 mill/uL (4.2-5.4); RED CELL DISTRIBUTION WIDTH 17.1 % (11.6-14.6)
[2021-11-07 06:54] LABS: INR 1.1; PROTHROMBIN TIME 11.9 sec (9.6-11.0)
[2021-11-07] MEDS: PANTOPRAZOLE SODIUM 40 MG/VIAL IV SCH (09:00)
[2021-11-07] MEDS: DOCUSATE SODIUM 250MG CAPSULE PO SCH ×2 (09:00→17:00)
[2021-11-07] MEDS: LOSARTAN POTASSIUM 25 MG TABLET PO SCH (09:38)
[2021-11-07] MEDS: FOLIC ACID/VITAMIN B COMP W-C TABLET PO SCH (09:38)
[2021-11-07] MEDS: SERTRALINE HCL 25MG TABLET PO SCH (09:39)
[2021-11-07] MEDS: LEVOFLOXACIN 250MG TABLET PO SCH (12:05)
[2021-11-07] MEDS: BLOOD SUGAR DIAGNOSTIC STRIP TEST SCH ×3 (12:05→21:00)
[2021-11-07] MEDS ORDERED: CEFAZOLIN 1000MG PREMIX 50 ML IV SCH (14:30)
[2021-11-07] MEDS ORDERED: INFLUENZA VACCINE 05/PF 0.5 ML SYRINGE IM ONE (16:30)
[2021-11-07] MEDS: ATORVASTATIN CALCIUM 40MG TABLET PO SCH (21:00)
[2021-11-07] MEDS: INSULIN LISPRO 100 UNITS/ML SUBCUT SCH (21:00)
[2021-11-07] MEDS ORDERED: DEXTROSE 50% WATER 50ML SYRINGE IV PRN (21:00)
[2021-11-08 04:00] VITALS: BP 134/58
[2021-11-08] MEDS: BLOOD SUGAR DIAGNOSTIC STRIP TEST SCH ×4 (06:55→21:00)
[2021-11-08 08:00] VITALS: BP 129/54
[2021-11-08] MEDS: INSULIN LISPRO 100 UNITS/ML SUBCUT SCH ×4 (08:10→21:00)
[2021-11-08] MEDS: PANTOPRAZOLE SODIUM 40 MG/VIAL IV SCH (09:00)
[2021-11-08 09:19] LABS: CHLORIDE 98 mEq/L (98-107)
[2021-11-08 09:34] LABS: PHOSPHORUS 2.7 mg/dL (2.5-4.9)
[2021-11-08] MEDS: FOLIC ACID/VITAMIN B COMP W-C TABLET PO SCH (10:08)
[2021-11-08] MEDS: LOSARTAN POTASSIUM 25 MG TABLET PO SCH (10:08)
[2021-11-08] MEDS: SERTRALINE HCL 25MG TABLET PO SCH (10:08)
[2021-11-08] MEDS: DOCUSATE SODIUM 250MG CAPSULE PO SCH ×2 (10:12→17:55)
[2021-11-08 12:00] VITALS: BP 138/61
[2021-11-08 16:00] VITALS: BP 111/53
[2021-11-08 20:00] VITALS: BP 134/55
[2021-11-08] MEDS: EPOETIN ALFA-EPBX 4,000 UNIT/ML VIAL SUBCUT SCH (21:00)
[2021-11-08] MEDS: MIRTAZAPINE 15MG TABLET PO SCH (21:42)
[2021-11-08] MEDS: ATORVASTATIN CALCIUM 40MG TABLET PO SCH (21:42)
[2021-11-09] VITALS: BP 148/62
[2021-11-09 04:00] VITALS: BP 136/55
[2021-11-09] MEDS: BLOOD SUGAR DIAGNOSTIC STRIP TEST SCH ×4 (05:43→21:00)
[2021-11-09 07:28] LABS: BASOPHILS % 0.5 % (0.0-2.0); EOSINOPHILS % 1.3 % (0.0-5.0); HEMATOCRIT. 33.3 % (36.0-48.0); HEMOGLOBIN. 11.1 g/dL (12.0-16.0); LYMPHOCYTES % 10.6 % (20.0-50.0); MEAN CORPUSCULAR HEMOGLOBIN 32.8 pg (28.0-32.0); MEAN CORPUSCULAR VOLUME 98.2 fL (81.0-99.0); MEAN PLATELET VOLUME 7.8 fl (7.4-10.4); MONOCYTES % 12.8 % (2.0-8.0); NEUTROPHILS % 74.8 % (40.0-76.0); PLATELET 390 x1000/uL (130-400); RED BLOOD CELL COUNT 3.39 mill/uL (4.2-5.4); RED CELL DISTRIBUTION WIDTH 17.1 % (11.6-14.6)
[2021-11-09 08:00] VITALS: BP 147/63
[2021-11-09] MEDS: INSULIN LISPRO 100 UNITS/ML SUBCUT SCH ×4 (08:10→21:00)
[2021-11-09 08:51] LABS: PHOSPHORUS 2.3 mg/dL (2.5-4.9)
[2021-11-09] MEDS: PANTOPRAZOLE SODIUM 40 MG/VIAL IV SCH ×2 (09:00→09:14)
[2021-11-09] MEDS: DOCUSATE SODIUM 250MG CAPSULE PO SCH ×2 (09:13→16:42)
[2021-11-09] MEDS: FOLIC ACID/VITAMIN B COMP W-C TABLET PO SCH (09:13)
[2021-11-09] MEDS: LOSARTAN POTASSIUM 25 MG TABLET PO SCH (09:13)
[2021-11-09] MEDS: SERTRALINE HCL 50MG TABLET PO SCH (09:20)
[2021-11-09] MEDS: LEVOFLOXACIN 250MG TABLET PO SCH (11:11)
[2021-11-09 12:00] VITALS: BP 138/60
[2021-11-09 16:00] VITALS: BP 145/65
[2021-11-09 20:00] VITALS: BP 134/65
[2021-11-09] MEDS: MIRTAZAPINE 15MG TABLET PO SCH (22:29)
[2021-11-09] MEDS: ATORVASTATIN CALCIUM 40MG TABLET PO SCH (22:29)
[2021-11-10] VITALS: BP 146/69
[2021-11-10 04:00] VITALS: BP 150/71
[2021-11-10] MEDS: BLOOD SUGAR DIAGNOSTIC STRIP TEST SCH ×4 (07:40→21:19)
[2021-11-10 08:00] VITALS: BP 141/69
[2021-11-10] MEDS: INSULIN LISPRO 100 UNITS/ML SUBCUT SCH ×4 (08:10→21:19)
[2021-11-10 09:41] LABS: HEMATOCRIT. 31.4 % (36.0-48.0); HEMOGLOBIN. 10.3 g/dL (12.0-16.0); LYMPHOCYTES % 13.5 % (20.0-50.0); MEAN CORPUSCULAR HEMOGLOBIN 33.1 pg (28.0-32.0); MEAN CORPUSCULAR VOLUME 100.4 fL (81.0-99.0); MEAN PLATELET VOLUME 7.6 fl (7.4-10.4); MONOCYTES % 8.8 % (2.0-8.0); NEUTROPHILS % 75.7 % (40.0-76.0); PLATELET 371 x1000/uL (130-400); RED BLOOD CELL COUNT 3.12 mill/uL (4.2-5.4); RED CELL DISTRIBUTION WIDTH 16.7 % (11.6-14.6)
[2021-11-10 09:54] LABS: CHLORIDE 99 mEq/L (98-107)
[2021-11-10] MEDS: LOSARTAN POTASSIUM 25 MG TABLET PO SCH (10:00)
[2021-11-10] MEDS: DOCUSATE SODIUM 250MG CAPSULE PO SCH ×2 (10:00→17:11)
[2021-11-10] MEDS: SERTRALINE HCL 50MG TABLET PO SCH (10:00)
[2021-11-10] MEDS: FOLIC ACID/VITAMIN B COMP W-C TABLET PO SCH (10:00)
[2021-11-10 12:00] VITALS: BP 115/61
[2021-11-10] MEDS: DEXAMETHASONE 6MG TABLET PO SCH (13:27)
[2021-11-10 16:00] VITALS: BP 141/69
[2021-11-10 20:00] VITALS: BP 114/72
[2021-11-10] MEDS: ATORVASTATIN CALCIUM 40MG TABLET PO SCH (21:19)
[2021-11-10] MEDS: MIRTAZAPINE 15MG TABLET PO SCH (21:19)
[2021-11-11] VITALS: BP 136/64
[2021-11-11 04:00] VITALS: BP 127/73
[2021-11-11 06:27] LABS: BASOPHILS % 0.2 % (0.0-2.0); EOSINOPHILS % 0.1 % (0.0-5.0); HEMATOCRIT. 28.8 % (36.0-48.0); HEMOGLOBIN. 9.8 g/dL (12.0-16.0); LYMPHOCYTES % 8.9 % (20.0-50.0); MEAN CORPUSCULAR HEMOGLOBIN 33.1 pg (28.0-32.0); MEAN PLATELET VOLUME 7.7 fl (7.4-10.4); MONOCYTES % 7.9 % (2.0-8.0); NEUTROPHILS % 82.9 % (40.0-76.0); PLATELET 368 x1000/uL (130-400); RED BLOOD CELL COUNT 2.96 mill/uL (4.2-5.4); RED CELL DISTRIBUTION WIDTH 16.6 % (11.6-14.6)
[2021-11-11 06:56] LABS: PHOSPHORUS 3.8 mg/dL (2.5-4.9)
[2021-11-11] MEDS: BLOOD SUGAR DIAGNOSTIC STRIP TEST SCH ×4 (07:40→20:59)
[2021-11-11 08:00] VITALS: BP 133/73
[2021-11-11] MEDS: INSULIN LISPRO 100 UNITS/ML SUBCUT SCH ×4 (08:10→21:00)
[2021-11-11] MEDS: DOCUSATE SODIUM 100MG CAPSULE PO PRN (09:38)
[2021-11-11] MEDS: FOLIC ACID/VITAMIN B COMP W-C TABLET PO SCH (09:39)
[2021-11-11] MEDS: DOCUSATE SODIUM 250MG CAPSULE PO SCH ×2 (09:39→17:00)
[2021-11-11] MEDS: OMEPRAZOLE 20MG CAPSULE EXTENDED RELEASE PO SCH (09:39)
[2021-11-11] MEDS: SERTRALINE HCL 50MG TABLET PO SCH (09:39)
[2021-11-11] MEDS: LOSARTAN POTASSIUM 25 MG TABLET PO SCH (09:39)
[2021-11-11] MEDS: DEXAMETHASONE 6MG TABLET PO SCH (09:39)
[2021-11-11 09:44] LABS: BASOPHILS % 0.4 % (0.0-2.0); EOSINOPHILS % 0.5 % (0.0-5.0); HEMATOCRIT. 27.9 % (36.0-48.0); HEMOGLOBIN. 9.4 g/dL (12.0-16.0); LYMPHOCYTES % 10.3 % (20.0-50.0); MEAN CORPUSCULAR HEMOGLOBIN 32.9 pg (28.0-32.0); MEAN CORPUSCULAR VOLUME 98.1 fL (81.0-99.0); MEAN PLATELET VOLUME 7.5 fl (7.4-10.4); MONOCYTES % 9.6 % (2.0-8.0); NEUTROPHILS % 79.2 % (40.0-76.0); PLATELET 347 x1000/uL (130-400); RED BLOOD CELL COUNT 2.84 mill/uL (4.2-5.4); RED CELL DISTRIBUTION WIDTH 16.4 % (11.6-14.6)
[2021-11-11] MEDS: LEVOFLOXACIN 250MG TABLET PO SCH (11:00)
[2021-11-11 12:00] VITALS: BP 135/68
[2021-11-11 16:00] VITALS: BP 146/63
[2021-11-11 20:00] VITALS: BP 121/54
[2021-11-11] MEDS: MIRTAZAPINE 15MG TABLET PO SCH (20:59)
[2021-11-11] MEDS: ATORVASTATIN CALCIUM 40MG TABLET PO SCH (20:59)
[2021-11-11] MEDS: EPOETIN ALFA-EPBX 4,000 UNIT/ML VIAL SUBCUT SCH (21:00)
[2021-11-12] VITALS: BP 106/64
[2021-11-12 04:00] VITALS: BP 119/59
[2021-11-12] MEDS: BLOOD SUGAR DIAGNOSTIC STRIP TEST SCH ×4 (05:42→20:45)
[2021-11-12] MEDS: INSULIN LISPRO 100 UNITS/ML SUBCUT SCH ×4 (05:42→20:45)
[2021-11-12] MEDS: OMEPRAZOLE 20MG CAPSULE EXTENDED RELEASE PO SCH (06:13)
[2021-11-12 06:22] LABS: BASOPHILS % 0.3 % (0.0-2.0); EOSINOPHILS % 0.2 % (0.0-5.0); HEMATOCRIT. 32.1 % (36.0-48.0); HEMOGLOBIN. 10.8 g/dL (12.0-16.0); LYMPHOCYTES % 13.8 % (20.0-50.0); MEAN CORPUSCULAR HEMOGLOBIN 33.3 pg (28.0-32.0); MEAN CORPUSCULAR VOLUME 99.5 fL (81.0-99.0); MEAN PLATELET VOLUME 7.6 fl (7.4-10.4); MONOCYTES % 8.5 % (2.0-8.0); NEUTROPHILS % 77.2 % (40.0-76.0); PLATELET 308 x1000/uL (130-400); RED BLOOD CELL COUNT 3.23 mill/uL (4.2-5.4); RED CELL DISTRIBUTION WIDTH 16.6 % (11.6-14.6)
[2021-11-12 08:00] VITALS: BP 149/60
[2021-11-12] MEDS: FOLIC ACID/VITAMIN B COMP W-C TABLET PO SCH (09:04)
[2021-11-12] MEDS: DOCUSATE SODIUM 100MG CAPSULE PO PRN ×3 (09:04→17:37)
[2021-11-12] MEDS: LOSARTAN POTASSIUM 25 MG TABLET PO SCH (09:04)
[2021-11-12] MEDS: SERTRALINE HCL 50MG TABLET PO SCH (09:09)
[2021-11-12] MEDS: DOCUSATE SODIUM 250MG CAPSULE PO SCH ×2 (09:10→17:37)
[2021-11-12] MEDS: DEXAMETHASONE 6MG TABLET PO SCH (10:00)
[2021-11-12 12:00] VITALS: BP 149/61
[2021-11-12 16:00] VITALS: BP 133/56
[2021-11-12 20:00] VITALS: BP 140/63
[2021-11-12] MEDS: MIRTAZAPINE 15MG TABLET PO SCH (20:43)
[2021-11-12] MEDS: ATORVASTATIN CALCIUM 40MG TABLET PO SCH (20:44)
[2021-11-13] VITALS: BP 136/60
[2021-11-13 04:00] VITALS: BP 138/58
[2021-11-13] MEDS: INSULIN LISPRO 100 UNITS/ML SUBCUT SCH ×3 (05:29→21:22)
[2021-11-13] MEDS: BLOOD SUGAR DIAGNOSTIC STRIP TEST SCH ×3 (05:29→21:22)
[2021-11-13] MEDS: OMEPRAZOLE 20MG CAPSULE EXTENDED RELEASE PO SCH (05:31)
[2021-11-13 06:36] LABS: BASOPHILS % 0.7 % (0.0-2.0); EOSINOPHILS % 0.9 % (0.0-5.0); HEMATOCRIT. 31.8 % (36.0-48.0); HEMOGLOBIN. 10.7 g/dL (12.0-16.0); LYMPHOCYTES % 8.7 % (20.0-50.0); MEAN CORPUSCULAR HEMOGLOBIN 33.1 pg (28.0-32.0); MEAN CORPUSCULAR VOLUME 98.4 fL (81.0-99.0); MEAN PLATELET VOLUME 7.8 fl (7.4-10.4); MONOCYTES % 7.5 % (2.0-8.0); NEUTROPHILS % 82.2 % (40.0-76.0); PLATELET 323 x1000/uL (130-400); RED BLOOD CELL COUNT 3.23 mill/uL (4.2-5.4); RED CELL DISTRIBUTION WIDTH 16.6 % (11.6-14.6)
[2021-11-13 08:21] VITALS: BP 146/62
[2021-11-13] MEDS: DOCUSATE SODIUM 250MG CAPSULE PO SCH ×2 (09:00→17:00)
[2021-11-13] MEDS: DEXAMETHASONE 6MG TABLET PO SCH (09:03)
[2021-11-13] MEDS: DOCUSATE SODIUM 100MG CAPSULE PO PRN (09:03)
[2021-11-13] MEDS: SERTRALINE HCL 50MG TABLET PO SCH (09:03)
[2021-11-13] MEDS: FOLIC ACID/VITAMIN B COMP W-C TABLET PO SCH (09:03)
[2021-11-13 12:00] VITALS: BP 147/65
[2021-11-13 16:00] VITALS: BP 143/59
[2021-11-13] MEDS: LOSARTAN POTASSIUM 25 MG TABLET PO SCH (17:00)
[2021-11-13 20:00] VITALS: BP 134/64
[2021-11-13] MEDS: MIRTAZAPINE 15MG TABLET PO SCH (21:21)
[2021-11-13] MEDS: ATORVASTATIN CALCIUM 40MG TABLET PO SCH (21:21)
[2021-11-14] VITALS: BP 110/52
[2021-11-14 04:00] VITALS: BP 103/52
[2021-11-14] MEDS: BLOOD SUGAR DIAGNOSTIC STRIP TEST SCH ×4 (06:12→21:15)
[2021-11-14] MEDS: INSULIN LISPRO 100 UNITS/ML SUBCUT SCH ×4 (06:12→21:14)
[2021-11-14] MEDS: OMEPRAZOLE 20MG CAPSULE EXTENDED RELEASE PO SCH (06:12)
[2021-11-14 07:32] LABS: BASOPHILS % 0.6 % (0.0-2.0); EOSINOPHILS % 0.7 % (0.0-5.0); HEMATOCRIT. 32.3 % (36.0-48.0); HEMOGLOBIN. 10.7 g/dL (12.0-16.0); LYMPHOCYTES % 11.8 % (20.0-50.0); MEAN CORPUSCULAR HEMOGLOBIN 32.8 pg (28.0-32.0); MEAN CORPUSCULAR VOLUME 98.5 fL (81.0-99.0); MEAN PLATELET VOLUME 7.9 fl (7.4-10.4); MONOCYTES % 10.2 % (2.0-8.0); NEUTROPHILS % 76.7 % (40.0-76.0); PLATELET 311 x1000/uL (130-400); RED BLOOD CELL COUNT 3.27 mill/uL (4.2-5.4); RED CELL DISTRIBUTION WIDTH 16.4 % (11.6-14.6)
[2021-11-14 08:00] VITALS: BP 135/54
[2021-11-14 08:00] LABS: PHOSPHORUS 4.6 mg/dL (2.5-4.9)
[2021-11-14] MEDS: LOSARTAN POTASSIUM 25 MG TABLET PO SCH (08:35)
[2021-11-14] MEDS: SERTRALINE HCL 50MG TABLET PO SCH (08:35)
[2021-11-14] MEDS: DOCUSATE SODIUM 250MG CAPSULE PO SCH ×2 (08:35→17:51)
[2021-11-14] MEDS: FOLIC ACID/VITAMIN B COMP W-C TABLET PO SCH (08:40)
[2021-11-14] MEDS: DEXAMETHASONE 6MG TABLET PO SCH (09:37)
[2021-11-14 12:00] VITALS: BP 142/68
[2021-11-14 14:42] LABS: HEPATITIS B SURFACE ANTIGEN NEGATIVE
[2021-11-14 16:00] VITALS: BP 148/62
[2021-11-14 20:00] VITALS: BP 140/60
[2021-11-14] MEDS: MIRTAZAPINE 15MG TABLET PO SCH (21:14)
[2021-11-14] MEDS: ATORVASTATIN CALCIUM 40MG TABLET PO SCH (21:14)
[2021-11-15] VITALS: BP 124/79
[2021-11-15 04:00] VITALS: BP 137/63
[2021-11-15] MEDS: OMEPRAZOLE 20MG CAPSULE EXTENDED RELEASE PO SCH (06:20)
[2021-11-15] MEDS: INSULIN LISPRO 100 UNITS/ML SUBCUT SCH ×4 (06:20→21:04)
[2021-11-15] MEDS: BLOOD SUGAR DIAGNOSTIC STRIP TEST SCH ×4 (06:20→20:57)
[2021-11-15 08:00] VITALS: BP 131/51
[2021-11-15 08:25] LABS: BASOPHILS % 0.5 % (0.0-2.0); EOSINOPHILS % 0.6 % (0.0-5.0); HEMATOCRIT. 28.1 % (36.0-48.0); HEMOGLOBIN. 9.5 g/dL (12.0-16.0); LYMPHOCYTES % 13.3 % (20.0-50.0); MEAN CORPUSCULAR HEMOGLOBIN 33.1 pg (28.0-32.0); MEAN CORPUSCULAR VOLUME 98.4 fL (81.0-99.0); MEAN PLATELET VOLUME 8.1 fl (7.4-10.4); MONOCYTES % 10.5 % (2.0-8.0); NEUTROPHILS % 75.1 % (40.0-76.0); PLATELET 287 x1000/uL (130-400); RED BLOOD CELL COUNT 2.86 mill/uL (4.2-5.4); RED CELL DISTRIBUTION WIDTH 17.2 % (11.6-14.6)
[2021-11-15 08:42] LABS: PHOSPHORUS 4.8 mg/dL (2.5-4.9)
[2021-11-15] MEDS: LOSARTAN POTASSIUM 25 MG TABLET PO SCH (09:00)
[2021-11-15] MEDS: DEXAMETHASONE 6MG TABLET PO SCH (09:06)
[2021-11-15] MEDS: SERTRALINE HCL 50MG TABLET PO SCH (09:07)
[2021-11-15] MEDS: DOCUSATE SODIUM 250MG CAPSULE PO SCH ×2 (09:07→16:50)
[2021-11-15] MEDS: FOLIC ACID/VITAMIN B COMP W-C TABLET PO SCH (09:10)
[2021-11-15 12:00] VITALS: BP 157/79
[2021-11-15 16:00] VITALS: BP 148/62
[2021-11-15] MEDS: DOCUSATE SODIUM 100MG CAPSULE PO PRN ×2 (16:41→16:43)
[2021-11-15 20:00] VITALS: BP 126/54
[2021-11-15] MEDS: EPOETIN ALFA-EPBX 4,000 UNIT/ML VIAL SUBCUT SCH (20:56)
[2021-11-15] MEDS: MIRTAZAPINE 15MG TABLET PO SCH (20:56)
[2021-11-15] MEDS: ATORVASTATIN CALCIUM 40MG TABLET PO SCH (20:56)
[2021-11-16] VITALS: BP 131/86
[2021-11-16 04:00] VITALS: BP 149/44
[2021-11-16] MEDS: OMEPRAZOLE 20MG CAPSULE EXTENDED RELEASE PO SCH (06:56)
[2021-11-16] MEDS: BLOOD SUGAR DIAGNOSTIC STRIP TEST SCH ×4 (07:07→21:15)
[2021-11-16] MEDS: INSULIN LISPRO 100 UNITS/ML SUBCUT SCH ×4 (07:10→21:15)
[2021-11-16 08:00] VITALS: BP 160/66
[2021-11-16 08:14] LABS: BASOPHILS % 0.6 % (0.0-2.0); EOSINOPHILS % 0.7 % (0.0-5.0); HEMATOCRIT. 31.8 % (36.0-48.0); HEMOGLOBIN. 10.8 g/dL (12.0-16.0); LYMPHOCYTES % 14.2 % (20.0-50.0); MEAN CORPUSCULAR HEMOGLOBIN 33.2 pg (28.0-32.0); MEAN CORPUSCULAR VOLUME 97.5 fL (81.0-99.0); MEAN PLATELET VOLUME 8.5 fl (7.4-10.4); MONOCYTES % 10.5 % (2.0-8.0); PLATELET 318 x1000/uL (130-400); RED BLOOD CELL COUNT 3.26 mill/uL (4.2-5.4); RED CELL DISTRIBUTION WIDTH 17.1 % (11.6-14.6)
[2021-11-16] MEDS: SERTRALINE HCL 50MG TABLET PO SCH (09:01)
[2021-11-16] MEDS: DEXAMETHASONE 6MG TABLET PO SCH (09:01)
[2021-11-16] MEDS: DOCUSATE SODIUM 250MG CAPSULE PO SCH ×2 (09:01→17:22)
[2021-11-16] MEDS: FOLIC ACID/VITAMIN B COMP W-C TABLET PO SCH (09:01)
[2021-11-16] MEDS: LOSARTAN POTASSIUM 25 MG TABLET PO SCH (09:01)
[2021-11-16] MEDS: CLONIDINE 0.1MG TABLET PO PRN (11:51)
[2021-11-16 12:00] VITALS: BP 163/61
[2021-11-16 16:00] VITALS: BP 151/60
[2021-11-16 20:00] VITALS: BP 122/60
[2021-11-16] MEDS: MIRTAZAPINE 15MG TABLET PO SCH (21:07)
[2021-11-16] MEDS: ATORVASTATIN CALCIUM 40MG TABLET PO SCH (21:07)
[2021-11-17] VITALS: BP 120/65
[2021-11-17 04:00] VITALS: BP 139/98
[2021-11-17] MEDS: BLOOD SUGAR DIAGNOSTIC STRIP TEST SCH ×4 (05:59→20:28)
[2021-11-17] MEDS: OMEPRAZOLE 20MG CAPSULE EXTENDED RELEASE PO SCH (05:59)
[2021-11-17] MEDS: INSULIN LISPRO 100 UNITS/ML SUBCUT SCH ×4 (06:59→20:29)
[2021-11-17 07:51] LABS: BASOPHILS % 0.5 % (0.0-2.0); EOSINOPHILS % 0.8 % (0.0-5.0); LYMPHOCYTES % 15.1 % (20.0-50.0); MEAN CORPUSCULAR HEMOGLOBIN 33.7 pg (28.0-32.0); MEAN CORPUSCULAR VOLUME 98.7 fL (81.0-99.0); MEAN PLATELET VOLUME 8.5 fl (7.4-10.4); MONOCYTES % 9.8 % (2.0-8.0); NEUTROPHILS % 73.8 % (40.0-76.0); PLATELET 322 x1000/uL (130-400); RED BLOOD CELL COUNT 3.55 mill/uL (4.2-5.4); RED CELL DISTRIBUTION WIDTH 17.7 % (11.6-14.6)
[2021-11-17 08:00] VITALS: BP 144/65
[2021-11-17] MEDS: SERTRALINE HCL 50MG TABLET PO SCH (09:02)
[2021-11-17] MEDS: FOLIC ACID/VITAMIN B COMP W-C TABLET PO SCH (09:02)
[2021-11-17] MEDS: DEXAMETHASONE 6MG TABLET PO SCH (09:02)
[2021-11-17] MEDS: LOSARTAN POTASSIUM 25 MG TABLET PO SCH (09:02)
[2021-11-17] MEDS: DOCUSATE SODIUM 250MG CAPSULE PO SCH ×2 (09:02→16:47)
[2021-11-17 12:00] VITALS: BP 147/73
[2021-11-17 16:00] VITALS: BP 143/58
[2021-11-17 20:00] VITALS: BP 114/60
[2021-11-17] MEDS: MIRTAZAPINE 15MG TABLET PO SCH (20:29)
[2021-11-17] MEDS: ATORVASTATIN CALCIUM 40MG TABLET PO SCH (20:29)
[2021-11-18] VITALS: BP 106/58
[2021-11-18 04:00] VITALS: BP 157/65
[2021-11-18] MEDS: INSULIN LISPRO 100 UNITS/ML SUBCUT SCH ×4 (05:39→20:37)
[2021-11-18] MEDS: OMEPRAZOLE 20MG CAPSULE EXTENDED RELEASE PO SCH (05:39)
[2021-11-18] MEDS: BLOOD SUGAR DIAGNOSTIC STRIP TEST SCH ×3 (05:39→17:06)
[2021-11-18 07:02] LABS: BASOPHILS % 0.3 % (0.0-2.0); EOSINOPHILS % 0.4 % (0.0-5.0); HEMATOCRIT. 31.7 % (36.0-48.0); HEMOGLOBIN. 10.7 g/dL (12.0-16.0); LYMPHOCYTES % 8.8 % (20.0-50.0); MEAN CORPUSCULAR HEMOGLOBIN 33.7 pg (28.0-32.0); MEAN CORPUSCULAR VOLUME 99.7 fL (81.0-99.0); MEAN PLATELET VOLUME 8.5 fl (7.4-10.4); MONOCYTES % 6.3 % (2.0-8.0); NEUTROPHILS % 84.2 % (40.0-76.0); PLATELET 269 x1000/uL (130-400); RED BLOOD CELL COUNT 3.18 mill/uL (4.2-5.4); RED CELL DISTRIBUTION WIDTH 17.9 % (11.6-14.6)
[2021-11-18 07:37] LABS: PHOSPHORUS 3.8 mg/dL (2.5-4.9)
[2021-11-18 08:00] VITALS: BP 160/62
[2021-11-18] MEDS: DEXAMETHASONE 6MG TABLET PO SCH (09:26)
[2021-11-18] MEDS: SERTRALINE HCL 50MG TABLET PO SCH (09:26)
[2021-11-18] MEDS: DOCUSATE SODIUM 250MG CAPSULE PO SCH ×2 (09:26→17:14)
[2021-11-18] MEDS: LOSARTAN POTASSIUM 25 MG TABLET PO SCH (09:26)
[2021-11-18] MEDS: FOLIC ACID/VITAMIN B COMP W-C TABLET PO SCH (09:26)
[2021-11-18 12:00] VITALS: BP 174/69
[2021-11-18] MEDS: CLONIDINE 0.1MG TABLET PO PRN (12:44)
[2021-11-18 15:32] VITALS: BP 131/59
[2021-11-18] MEDS ORDERED: HEPARIN SODIUM 1,000 UNIT/1ML VIAL IV ONE (15:45)
[2021-11-18 20:00] VITALS: BP 118/49
[2021-11-18] MEDS: ATORVASTATIN CALCIUM 40MG TABLET PO SCH (20:37)
[2021-11-18] MEDS: MIRTAZAPINE 15MG TABLET PO SCH (20:37)
[2021-11-19] VITALS: BP 154/64
[2021-11-19 04:00] VITALS: BP 135/72
[2021-11-19] MEDS: OMEPRAZOLE 20MG CAPSULE EXTENDED RELEASE PO SCH (05:53)
[2021-11-19] MEDS: INSULIN LISPRO 100 UNITS/ML SUBCUT SCH ×4 (05:56→22:25)
[2021-11-19 08:00] VITALS: BP 175/66
[2021-11-19] MEDS: SERTRALINE HCL 50MG TABLET PO SCH (08:27)
[2021-11-19] MEDS: DOCUSATE SODIUM 250MG CAPSULE PO SCH ×2 (08:27→17:58)
[2021-11-19] MEDS: FOLIC ACID/VITAMIN B COMP W-C TABLET PO SCH (08:27)
[2021-11-19] MEDS: LOSARTAN POTASSIUM 25 MG TABLET PO SCH (08:28)
[2021-11-19 09:11] LABS: BASOPHILS % 0.6 % (0.0-2.0); EOSINOPHILS % 1.5 % (0.0-5.0); HEMATOCRIT. 32.1 % (36.0-48.0); HEMOGLOBIN. 10.9 g/dL (12.0-16.0); LYMPHOCYTES % 11.4 % (20.0-50.0); MEAN CORPUSCULAR HEMOGLOBIN 33.3 pg (28.0-32.0); MEAN CORPUSCULAR VOLUME 97.8 fL (81.0-99.0); MEAN PLATELET VOLUME 8.6 fl (7.4-10.4); MONOCYTES % 7.5 % (2.0-8.0); PLATELET 273 x1000/uL (130-400); RED BLOOD CELL COUNT 3.28 mill/uL (4.2-5.4); RED CELL DISTRIBUTION WIDTH 18.5 % (11.6-14.6)
[2021-11-19] MEDS: DEXAMETHASONE 6MG TABLET PO SCH (10:45)
[2021-11-19 12:00] VITALS: BP 166/67
[2021-11-19 16:00] VITALS: BP 155/57
[2021-11-19] MEDS: BLOOD SUGAR DIAGNOSTIC STRIP TEST SCH ×2 (16:40→21:00)
[2021-11-19 20:00] VITALS: BP 140/58
[2021-11-19] MEDS: MIRTAZAPINE 15MG TABLET PO SCH (22:25)
[2021-11-20] VITALS: BP 155/55
[2021-11-20 04:00] VITALS: BP 154/49
[2021-11-20] MEDS: INSULIN LISPRO 100 UNITS/ML SUBCUT SCH ×4 (05:54→20:38)
[2021-11-20] MEDS: BLOOD SUGAR DIAGNOSTIC STRIP TEST SCH ×4 (05:54→20:36)
[2021-11-20] MEDS: OMEPRAZOLE 20MG CAPSULE EXTENDED RELEASE PO SCH (06:01)
[2021-11-20 08:00] VITALS: BP 160/60
[2021-11-20 08:36] LABS: PHOSPHORUS 3.7 mg/dL (2.5-4.9)
[2021-11-20] MEDS: FOLIC ACID/VITAMIN B COMP W-C TABLET PO SCH (08:54)
[2021-11-20] MEDS: LOSARTAN POTASSIUM 25 MG TABLET PO SCH (08:54)
[2021-11-20] MEDS: DOCUSATE SODIUM 250MG CAPSULE PO SCH ×2 (08:54→16:43)
[2021-11-20] MEDS: SERTRALINE HCL 50MG TABLET PO SCH (08:54)
[2021-11-20] MEDS: DEXAMETHASONE 6MG TABLET PO SCH (10:12)
[2021-11-20 12:00] VITALS: BP 155/64
[2021-11-20 13:17] LABS: BASOPHILS % 0.6 % (0.0-2.0); EOSINOPHILS % 1.5 % (0.0-5.0); HEMATOCRIT. 41.5 % (36.0-48.0); HEMOGLOBIN. 13.4 g/dL (12.0-16.0); LYMPHOCYTES % 13.3 % (20.0-50.0); MEAN CORPUSCULAR HEMOGLOBIN 33.4 pg (28.0-32.0); MEAN PLATELET VOLUME 8.3 fl (7.4-10.4); MONOCYTES % 10.2 % (2.0-8.0); NEUTROPHILS % 74.4 % (40.0-76.0); PLATELET 207 x1000/uL (130-400); RED CELL DISTRIBUTION WIDTH 20.6 % (11.6-14.6)
[2021-11-20 13:18] LABS: MEAN CORPUSCULAR VOLUME 103.8 fL (81.0-99.0)
[2021-11-20 16:00] VITALS: BP 171/65
[2021-11-20 20:00] VITALS: BP 157/73
[2021-11-20] MEDS: MIRTAZAPINE 15MG TABLET PO SCH (20:33)
[2021-11-21] VITALS: BP 147/68
[2021-11-21 04:00] VITALS: BP 138/63
[2021-11-21] MEDS: OMEPRAZOLE 20MG CAPSULE EXTENDED RELEASE PO SCH (05:58)
[2021-11-21] MEDS: BLOOD SUGAR DIAGNOSTIC STRIP TEST SCH ×4 (05:58→21:41)
[2021-11-21] MEDS: INSULIN LISPRO 100 UNITS/ML SUBCUT SCH ×4 (06:35→21:00)
[2021-11-21 08:00] VITALS: BP 153/60
[2021-11-21] MEDS: SERTRALINE HCL 50MG TABLET PO SCH (09:00)
[2021-11-21] MEDS: LOSARTAN POTASSIUM 25 MG TABLET PO SCH (09:00)
[2021-11-21] MEDS: FOLIC ACID/VITAMIN B COMP W-C TABLET PO SCH (09:00)
[2021-11-21] MEDS: DOCUSATE SODIUM 250MG CAPSULE PO SCH ×2 (09:00→17:00)
[2021-11-21] MEDS: DEXAMETHASONE 6MG TABLET PO SCH (10:00)
[2021-11-21] MEDS ORDERED: CEFAZOLIN 1000MG PREMIX 50 ML IV NR (10:00)
[2021-11-21 10:29] LABS: BASOPHILS % 0.7 % (0.0-2.0); EOSINOPHILS % 2.3 % (0.0-5.0); HEMATOCRIT. 33.8 % (36.0-48.0); HEMOGLOBIN. 11.1 g/dL (12.0-16.0); LYMPHOCYTES % 14.4 % (20.0-50.0); MEAN CORPUSCULAR HEMOGLOBIN 34.6 pg (28.0-32.0); MEAN CORPUSCULAR VOLUME 105.5 fL (81.0-99.0); MEAN PLATELET VOLUME 7.8 fl (7.4-10.4); MONOCYTES % 6.9 % (2.0-8.0); NEUTROPHILS % 75.7 % (40.0-76.0); PLATELET 221 x1000/uL (130-400); RED BLOOD CELL COUNT 3.21 mill/uL (4.2-5.4); RED CELL DISTRIBUTION WIDTH 20.3 % (11.6-14.6)
[2021-11-21 10:30] LABS: INR 1.1; PROTHROMBIN TIME 11.8 sec (9.6-11.0)
[2021-11-21 11:12] LABS: PHOSPHORUS 3.6 mg/dL (2.5-4.9)
[2021-11-21 12:00] VITALS: BP_SYST 142; BP_SYST 147; BP_DIAS 63
[2021-11-21] MEDS: DEXTROSE 50% WATER 50ML SYRINGE IV PRN (12:27)
[2021-11-21] MEDS ORDERED: DEXAMETHASONE 4MG/ML 1ML VIAL ONE (14:35)
[2021-11-21] MEDS ORDERED: ONDANSETRON HCL 4MG/2ML INJ ONE (14:35)
[2021-11-21] MEDS ORDERED: PROPOFOL 200MG/20ML VIAL IV ONE (14:35)
[2021-11-21] MEDS ORDERED: MIDAZOLAM HCL 2 MG/2 ML VIAL ONE (15:08)
[2021-11-21 20:00] VITALS: BP 174/60
[2021-11-21] MEDS: MIRTAZAPINE 15MG TABLET PO SCH (21:12)
[2021-11-22] VITALS: BP 154/64
[2021-11-22 04:00] VITALS: BP 146/65
[2021-11-22] MEDS: OMEPRAZOLE 20MG CAPSULE EXTENDED RELEASE PO SCH (06:06)
[2021-11-22] MEDS: BLOOD SUGAR DIAGNOSTIC STRIP TEST SCH ×4 (06:40→21:38)
[2021-11-22] MEDS: INSULIN LISPRO 100 UNITS/ML SUBCUT SCH ×4 (07:04→21:00)
[2021-11-22 08:04] VITALS: BP 147/51
[2021-11-22] MEDS: FOLIC ACID/VITAMIN B COMP W-C TABLET PO SCH (08:49)
[2021-11-22] MEDS: LOSARTAN POTASSIUM 25 MG TABLET PO SCH (08:50)
[2021-11-22] MEDS: DOCUSATE SODIUM 250MG CAPSULE PO SCH ×2 (08:50→16:50)
[2021-11-22] MEDS: SERTRALINE HCL 50MG TABLET PO SCH (08:50)
[2021-11-22 10:07] LABS: BASOPHILS % 1.2 % (0.0-2.0); HEMATOCRIT. 26.6 % (36.0-48.0); HEMOGLOBIN. 9.1 g/dL (12.0-16.0); LYMPHOCYTES % 11.9 % (20.0-50.0); MEAN CORPUSCULAR HEMOGLOBIN 34.1 pg (28.0-32.0); MONOCYTES % 4.1 % (2.0-8.0); NEUTROPHILS % 81.8 % (40.0-76.0); PLATELET 188 x1000/uL (130-400); RED BLOOD CELL COUNT 2.69 mill/uL (4.2-5.4)
[2021-11-22 10:21] LABS: PHOSPHORUS 1.9 mg/dL (2.5-4.9)
[2021-11-22 12:00] VITALS: BP 111/65
[2021-11-22] MEDS ORDERED: POTASSIUM-SODIUM PHOSPHATE POWDER PACKET GT NR (12:45)
[2021-11-22 16:00] VITALS: BP 146/51
[2021-11-22 20:00] VITALS: BP 159/60
[2021-11-22] MEDS: MIRTAZAPINE 15MG TABLET PO SCH (21:38)
[2021-11-23] VITALS: BP 160/94
[2021-11-23 04:00] VITALS: BP 127/48
[2021-11-23] MEDS: BLOOD SUGAR DIAGNOSTIC STRIP TEST SCH ×4 (06:21→21:16)
[2021-11-23] MEDS: INSULIN LISPRO 100 UNITS/ML SUBCUT SCH ×4 (06:21→21:16)
[2021-11-23] MEDS: OMEPRAZOLE 20MG CAPSULE EXTENDED RELEASE PO SCH (06:28)
[2021-11-23 08:00] VITALS: BP 160/76
[2021-11-23 08:18] LABS: BASOPHILS % 0.7 % (0.0-2.0); EOSINOPHILS % 1.4 % (0.0-5.0); HEMOGLOBIN. 10.1 g/dL (12.0-16.0); LYMPHOCYTES % 13.6 % (20.0-50.0); MEAN CORPUSCULAR HEMOGLOBIN 34.2 pg (28.0-32.0); MONOCYTES % 8.9 % (2.0-8.0); NEUTROPHILS % 75.4 % (40.0-76.0); PLATELET 171 x1000/uL (130-400); RED BLOOD CELL COUNT 2.94 mill/uL (4.2-5.4); RED CELL DISTRIBUTION WIDTH 20.4 % (11.6-14.6)
[2021-11-23] MEDS: DOCUSATE SODIUM 250MG CAPSULE PO SCH ×2 (09:00→16:53)
[2021-11-23] MEDS: FOLIC ACID/VITAMIN B COMP W-C TABLET PO SCH (09:03)
[2021-11-23] MEDS: LOSARTAN POTASSIUM 25 MG TABLET PO SCH (09:03)
[2021-11-23] MEDS: SERTRALINE HCL 50MG TABLET PO SCH (09:03)
[2021-11-23 12:00] VITALS: BP 154/57
[2021-11-23 16:00] VITALS: BP 132/46
[2021-11-23 20:00] VITALS: BP 133/70
[2021-11-23] MEDS: MIRTAZAPINE 15MG TABLET PO SCH (21:15)
[2021-11-24] VITALS: BP 119/89
[2021-11-24 04:00] VITALS: BP 128/48
[2021-11-24] MEDS: OMEPRAZOLE 20MG CAPSULE EXTENDED RELEASE PO SCH (06:02)
[2021-11-24] MEDS: BLOOD SUGAR DIAGNOSTIC STRIP TEST SCH ×4 (06:02→21:20)
[2021-11-24] MEDS: INSULIN LISPRO 100 UNITS/ML SUBCUT SCH ×4 (06:02→21:00)
[2021-11-24 08:00] VITALS: BP 166/64
[2021-11-24] MEDS: DOCUSATE SODIUM 250MG CAPSULE PO SCH ×2 (09:00→16:43)
[2021-11-24] MEDS: LOSARTAN POTASSIUM 25 MG TABLET PO SCH (09:55)
[2021-11-24] MEDS: FOLIC ACID/VITAMIN B COMP W-C TABLET PO SCH (09:55)
[2021-11-24] MEDS: SERTRALINE HCL 50MG TABLET PO SCH (09:55)
[2021-11-24 12:00] VITALS: BP 130/67
[2021-11-24 16:00] VITALS: BP 154/61
[2021-11-24 20:00] VITALS: BP 148/51
[2021-11-24] MEDS: MIRTAZAPINE 15MG TABLET PO SCH (22:06)
[2021-11-24] MEDS: ACETAMINOPHEN 650MG/20.3ML UDC GT PRN (22:06)
[2021-11-25] VITALS: BP 141/54
[2021-11-25 04:00] VITALS: BP 152/63
[2021-11-25 06:10] LABS: HEMATOCRIT. 25.6 % (36.0-48.0); HEMOGLOBIN. 8.6 g/dL (12.0-16.0); MEAN CORPUSCULAR HEMOGLOBIN 34.2 pg (28.0-32.0); MEAN PLATELET VOLUME 8.9 fl (7.4-10.4); PLATELET 138 x1000/uL (130-400); RED BLOOD CELL COUNT 2.51 mill/uL (4.2-5.4)
[2021-11-25] MEDS: BLOOD SUGAR DIAGNOSTIC STRIP TEST SCH ×2 (06:28→21:00)
[2021-11-25] MEDS: OMEPRAZOLE 20MG CAPSULE EXTENDED RELEASE PO SCH (06:52)
[2021-11-25] MEDS: INSULIN LISPRO 100 UNITS/ML SUBCUT SCH ×2 (06:53→21:00)
[2021-11-25 08:00] VITALS: BP 143/53
[2021-11-25 08:10] LABS: CLARITY URINE TURBID (CLEAR); COLOR URINE ORANGE (YELLOW); KETONES URINE NEGATIVE (NEGATIVE); LEUKOCYTE ESTERASE URINE 3+ (NEGATIVE); NITRITE URINE POSITIVE (NEGATIVE); OCCULT BLOOD URINE 2+ (NEGATIVE); PH URINE 7.5 (4.5-8.0); PROTEIN URINE 2+ (NEGATIVE); SPECIFIC GRAVITY URINE 1.021 (1.005-1.030); UROBILINOGEN URINE 0.2 E.U./dL (0.2-1.0)
[2021-11-25 10:05] LABS: PLATELET ESTIMATE NORMAL
[2021-11-25 10:06] LABS: PHOSPHORUS 5.3 mg/dL (2.5-4.9)
[2021-11-25] MEDS ORDERED: CEFTRIAXONE 1 G PREMIX 50 ML IV SCH (10:15)
[2021-11-25] MEDS: DOCUSATE SODIUM 250MG CAPSULE PO SCH ×2 (10:39→20:34)
[2021-11-25] MEDS: SERTRALINE HCL 50MG TABLET PO SCH (10:40)
[2021-11-25] MEDS: LOSARTAN POTASSIUM 25 MG TABLET PO SCH (10:40)
[2021-11-25 12:00] VITALS: BP 135/73
[2021-11-25 16:00] VITALS: BP 106/72
[2021-11-25 20:00] VITALS: BP 135/75
[2021-11-25] MEDS: EPOETIN ALFA-EPBX 4,000 UNIT/ML VIAL SUBCUT SCH (22:19)
[2021-11-25] MEDS: CEFTRIAXONE 1,000 MG in DEXTROSE 5% WATER 50 ML IV SCH (22:22)
[2021-11-25] MEDS: MIRTAZAPINE 15MG TABLET PO SCH (22:22)
[2021-11-26] VITALS: BP 101/65
[2021-11-26 04:00] VITALS: BP 130/52
[2021-11-26] MEDS: OMEPRAZOLE 20MG CAPSULE EXTENDED RELEASE PO SCH (05:42)
[2021-11-26] MEDS: BLOOD SUGAR DIAGNOSTIC STRIP TEST SCH ×4 (05:42→20:47)
[2021-11-26] MEDS: INSULIN LISPRO 100 UNITS/ML SUBCUT SCH ×4 (07:15→20:26)
[2021-11-26 07:17] LABS: BASOPHILS % 0.8 % (0.0-2.0); EOSINOPHILS % 0.9 % (0.0-5.0); HEMATOCRIT. 25.7 % (36.0-48.0); HEMOGLOBIN. 8.8 g/dL (12.0-16.0); LYMPHOCYTES % 7.9 % (20.0-50.0); MEAN CORPUSCULAR HEMOGLOBIN 34.5 pg (28.0-32.0); MEAN CORPUSCULAR VOLUME 100.3 fL (81.0-99.0); MEAN PLATELET VOLUME 8.7 fl (7.4-10.4); MONOCYTES % 9.4 % (2.0-8.0); PLATELET 140 x1000/uL (130-400); RED BLOOD CELL COUNT 2.56 mill/uL (4.2-5.4); RED CELL DISTRIBUTION WIDTH 19.5 % (11.6-14.6)
[2021-11-26 08:00] VITALS: BP 142/55
[2021-11-26] MEDS: LOSARTAN POTASSIUM 25 MG TABLET PO SCH (08:53)
[2021-11-26] MEDS: SERTRALINE HCL 50MG TABLET PO SCH (08:53)
[2021-11-26] MEDS: DOCUSATE SODIUM 250MG CAPSULE PO SCH ×2 (08:53→17:41)
[2021-11-26 12:00] VITALS: BP 145/56
[2021-11-26] MEDS: CEFTRIAXONE 1,000 MG in DEXTROSE 5% WATER 50 ML IV SCH (12:38)
[2021-11-26 16:00] VITALS: BP 154/94
[2021-11-26 20:00] VITALS: BP 146/54
[2021-11-26] MEDS: MIRTAZAPINE 15MG TABLET PO SCH (20:25)
[2021-11-27] VITALS: BP 156/63
[2021-11-27 04:00] VITALS: BP 156/66
[2021-11-27] MEDS: BLOOD SUGAR DIAGNOSTIC STRIP TEST SCH ×4 (06:38→21:04)
[2021-11-27] MEDS: OMEPRAZOLE 20MG CAPSULE EXTENDED RELEASE PO SCH (06:43)
[2021-11-27] MEDS: INSULIN LISPRO 100 UNITS/ML SUBCUT SCH ×4 (06:45→20:45)
[2021-11-27 07:18] LABS: MEAN CORPUSCULAR HEMOGLOBIN 34.9 pg (28.0-32.0); MEAN CORPUSCULAR VOLUME 108.5 fL (81.0-99.0); PLATELET 132 x1000/uL (130-400); RED BLOOD CELL COUNT 2.86 mill/uL (4.2-5.4); RED CELL DISTRIBUTION WIDTH 20.8 % (11.6-14.6)
[2021-11-27 07:39] LABS: PHOSPHORUS 4.1 mg/dL (2.5-4.9)
[2021-11-27 08:00] VITALS: BP 153/63
[2021-11-27] MEDS: LOSARTAN POTASSIUM 25 MG TABLET PO SCH (08:41)
[2021-11-27] MEDS: DOCUSATE SODIUM 250MG CAPSULE PO SCH ×2 (08:41→17:00)
[2021-11-27] MEDS: SERTRALINE HCL 50MG TABLET PO SCH (08:42)
[2021-11-27 12:00] VITALS: BP 157/64
[2021-11-27 12:07] LABS: PLATELET ESTIMATE NORMAL
[2021-11-27] MEDS: CEFTRIAXONE 1,000 MG in DEXTROSE 5% WATER 50 ML IV SCH (13:09)
[2021-11-27 16:00] VITALS: BP 140/70
[2021-11-27 20:00] VITALS: BP 142/93
[2021-11-27] MEDS: MIRTAZAPINE 15MG TABLET PO SCH (20:45)
[2021-11-27] MEDS: ACETAMINOPHEN 650MG/20.3ML UDC GT PRN (20:48)
[2021-11-28] VITALS: BP 153/59
[2021-11-28 04:00] VITALS: BP 149/71
[2021-11-28] MEDS: BLOOD SUGAR DIAGNOSTIC STRIP TEST SCH ×4 (05:47→21:00)
[2021-11-28] MEDS: INSULIN LISPRO 100 UNITS/ML SUBCUT SCH ×4 (06:14→21:38)
[2021-11-28 06:19] LABS: HEMATOCRIT. 29.6 % (36.0-48.0); HEMOGLOBIN. 10.2 g/dL (12.0-16.0); MEAN CORPUSCULAR HEMOGLOBIN 35.7 pg (28.0-32.0); MEAN CORPUSCULAR VOLUME 103.3 fL (81.0-99.0); MEAN PLATELET VOLUME 9.2 fl (7.4-10.4); PLATELET 161 x1000/uL (130-400); RED BLOOD CELL COUNT 2.87 mill/uL (4.2-5.4); RED CELL DISTRIBUTION WIDTH 19.8 % (11.6-14.6)
[2021-11-28] MEDS: OMEPRAZOLE 20MG CAPSULE EXTENDED RELEASE PO SCH (06:41)
[2021-11-28 06:53] LABS: PHOSPHORUS 3.4 mg/dL (2.5-4.9)
[2021-11-28 08:00] VITALS: BP 152/51
[2021-11-28 08:08] LABS: PLATELET ESTIMATE NORMAL
[2021-11-28] MEDS: LOSARTAN POTASSIUM 25 MG TABLET PO SCH (09:39)
[2021-11-28] MEDS: DOCUSATE SODIUM 250MG CAPSULE PO SCH ×2 (09:39→18:00)
[2021-11-28] MEDS: SERTRALINE HCL 50MG TABLET PO SCH (09:40)
[2021-11-28] MEDS: CEFTRIAXONE 1,000 MG in DEXTROSE 5% WATER 50 ML IV SCH (16:38)
[2021-11-28 20:00] VITALS: BP 157/58
[2021-11-28] MEDS: MIRTAZAPINE 15MG TABLET PO SCH (21:00)
[2021-11-29 04:00] VITALS: BP 137/65
[2021-11-29] MEDS: OMEPRAZOLE 20MG CAPSULE EXTENDED RELEASE PO SCH (06:07)
[2021-11-29] MEDS: BLOOD SUGAR DIAGNOSTIC STRIP TEST SCH ×4 (06:14→21:00)
[2021-11-29 07:35] LABS: CHLORIDE 98 mEq/L (98-107)
[2021-11-29 07:48] LABS: PHOSPHORUS 2.9 mg/dL (2.5-4.9)
[2021-11-29 08:00] VITALS: BP 158/63
[2021-11-29] MEDS: DOCUSATE SODIUM 250MG CAPSULE PO SCH (09:00)
[2021-11-29] MEDS: SERTRALINE HCL 50MG TABLET PO SCH (10:12)
[2021-11-29] MEDS: INSULIN LISPRO 100 UNITS/ML SUBCUT SCH ×4 (10:14→23:44)
[2021-11-29 12:00] VITALS: BP 162/48
[2021-11-29] MEDS: CEFTRIAXONE 1,000 MG in DEXTROSE 5% WATER 50 ML IV SCH (15:33)
[2021-11-29] MEDS: ACETAMINOPHEN 650MG/20.3ML UDC GT PRN ×2 (15:33→23:44)
[2021-11-29 16:00] VITALS: BP 148/44
[2021-11-29] MEDS: LOSARTAN POTASSIUM 50 MG TABLET PO SCH (18:15)
[2021-11-29] MEDS: DOCUSATE SODIUM SUGAR FREE 100MG/10ML UDC NG SCH (18:15)
[2021-11-29 18:31] LABS: HEMOGLOBIN. 8.6 g/dL (12.0-16.0)
[2021-11-29 18:33] LABS: HEMATOCRIT. 25.3 % (36.0-48.0); MEAN CORPUSCULAR VOLUME 99.9 fL (81.0-99.0); PLATELET 175 x1000/uL (130-400); RED BLOOD CELL COUNT 2.53 mill/uL (4.2-5.4); RED CELL DISTRIBUTION WIDTH 18.9 % (11.6-14.6)
[2021-11-29 20:00] VITALS: BP 174/74
[2021-11-29] MEDS: MIRTAZAPINE 15MG TABLET PO SCH (22:30)
[2021-11-29] MEDS: METHYLPREDNISOLONE SOD SUCC 40 MG/ML VIAL IV SCH (22:31)
[2021-11-30] VITALS: BP 150/41
[2021-11-30 04:00] VITALS: BP 130/48
[2021-11-30 05:52] LABS: PLATELET ESTIMATE NORMAL
[2021-11-30] MEDS: METHYLPREDNISOLONE SOD SUCC 40 MG/ML VIAL IV SCH ×2 (07:16→14:25)
[2021-11-30] MEDS: BLOOD SUGAR DIAGNOSTIC STRIP TEST SCH ×4 (07:16→20:47)
[2021-11-30] MEDS: OMEPRAZOLE 20MG CAPSULE EXTENDED RELEASE PO SCH (07:16)
[2021-11-30] MEDS: INSULIN LISPRO 100 UNITS/ML SUBCUT SCH ×4 (07:24→20:54)
[2021-11-30 08:00] VITALS: BP 162/40
[2021-11-30] MEDS: EPOETIN ALFA-EPBX 4,000 UNIT/ML VIAL SUBCUT SCH (08:19)
[2021-11-30 08:48] LABS: BG BASE EXCESS -1.5 mmol/L (-2.0-2.0); BG CARBOXYHEMOGLOBIN 0.5 % (0.5-1.5); BG DEOXYHEMOGLOBIN 2.3 % (0.0-5.0); BG FRACTION INSPIRED OXYGEN 28; BG HCO3 ACT 22.2 mmol/L (22.0-26.0); BG METHEMOGLOBIN 0.3 % (0.0-1.5); BG OXYGEN SATURATION 97.7 % (92.0-98.5); BG OXYHEMOGLOBIN 96.9 % (94.0-97.0); BG PCO2 33.2 mmHg (35.0-45.0); BG PH 7.444 (7.350-7.450); BG PO2 102.6 mmHg (75.0-100.0); BG SAMPLE SITE LEFT BRACHIAL; BG TOTAL HEMOGLOBIN 8.7 g/dL (12.0-18.0); BG VENT MODE NASAL CANNULA
[2021-11-30] MEDS: DOCUSATE SODIUM SUGAR FREE 100MG/10ML UDC NG SCH ×2 (09:00→17:00)
[2021-11-30 09:11] LABS: VITAMIN B12 SERUM 1909 pg/mL (211-911)
[2021-11-30 09:12] LABS: PHOSPHORUS 2.8 mg/dL (2.5-4.9)
[2021-11-30] MEDS: SERTRALINE HCL 50MG TABLET PO SCH (09:25)
[2021-11-30] MEDS: LANSOPRAZOLE 30MG DR CAPSULE GT SCH (09:25)
[2021-11-30] MEDS: LOSARTAN POTASSIUM 50 MG TABLET PO SCH (09:25)
[2021-11-30 12:00] VITALS: BP 155/40
[2021-11-30] MEDS: CEFTRIAXONE 1,000 MG in DEXTROSE 5% WATER 50 ML IV SCH (12:23)
[2021-11-30 13:31] LABS: HEMATOCRIT. 26.8 % (36.0-48.0); HEMOGLOBIN. 8.8 g/dL (12.0-16.0); MEAN CORPUSCULAR HEMOGLOBIN 34.1 pg (28.0-32.0); MEAN CORPUSCULAR VOLUME 104.1 fL (81.0-99.0); MEAN PLATELET VOLUME 9.6 fl (7.4-10.4); PLATELET 188 x1000/uL (130-400); RED BLOOD CELL COUNT 2.58 mill/uL (4.2-5.4); RED CELL DISTRIBUTION WIDTH 19.2 % (11.6-14.6)
[2021-11-30 14:01] LABS: PLATELET ESTIMATE NORMAL
[2021-11-30] MEDS ORDERED: SODIUM POLYSTYRENE SULFONATE 15 G/60 ML BOT PEG NR (14:30)
[2021-11-30 16:00] VITALS: BP 174/73
[2021-11-30] MEDS ORDERED: BUDESONIDE 0.5MG/2ML NEB HHN SCH (18:00)
[2021-11-30 20:00] VITALS: BP 183/78
[2021-11-30] MEDS: MIRTAZAPINE 15MG TABLET PO SCH (20:44)
[2021-11-30] MEDS: CLONIDINE 0.1MG TABLET PO PRN (21:20)
[2021-12-01] VITALS: BP 147/57
[2021-12-01 04:00] VITALS: BP 167/62
[2021-12-01] MEDS: CLONIDINE 0.1MG TABLET PO PRN (05:45)
[2021-12-01] MEDS: BLOOD SUGAR DIAGNOSTIC STRIP TEST SCH ×4 (06:23→20:55)
[2021-12-01] MEDS: INSULIN LISPRO 100 UNITS/ML SUBCUT SCH ×4 (06:58→20:55)
[2021-12-01] MEDS: LANSOPRAZOLE 30MG DR CAPSULE GT SCH (06:59)
[2021-12-01 08:00] VITALS: BP 173/57
[2021-12-01] MEDS: PREDNISONE 10MG TABLET PO SCH (09:21)
[2021-12-01] MEDS: SERTRALINE HCL 50MG TABLET PO SCH (09:21)
[2021-12-01] MEDS: DOCUSATE SODIUM SUGAR FREE 100MG/10ML UDC NG SCH ×2 (09:21→16:33)
[2021-12-01] MEDS: LOSARTAN POTASSIUM 100 MG TABLET PO SCH (09:22)
[2021-12-01 11:00] LABS: PHOSPHORUS 3.8 mg/dL (2.5-4.9)
[2021-12-01 11:11] LABS: BASOPHILS % 0.4 % (0.0-2.0); EOSINOPHILS % 0.6 % (0.0-5.0); HEMATOCRIT. 29.7 % (36.0-48.0); HEMOGLOBIN. 9.5 g/dL (12.0-16.0); LYMPHOCYTES % 8.8 % (20.0-50.0); MEAN CORPUSCULAR HEMOGLOBIN 34.5 pg (28.0-32.0); MEAN CORPUSCULAR VOLUME 108.5 fL (81.0-99.0); MEAN PLATELET VOLUME 9.1 fl (7.4-10.4); MONOCYTES % 7.2 % (2.0-8.0); PLATELET 219 x1000/uL (130-400); RED BLOOD CELL COUNT 2.74 mill/uL (4.2-5.4); RED CELL DISTRIBUTION WIDTH 20.1 % (11.6-14.6)
[2021-12-01 11:42] VITALS: BP 159/61
[2021-12-01 16:00] VITALS: BP 159/55
[2021-12-01 20:00] VITALS: BP 156/57
[2021-12-01] MEDS: MIRTAZAPINE 15MG TABLET PO SCH (20:54)
[2021-12-02] VITALS: BP 157/62
[2021-12-02] MEDS: CLONIDINE 0.1MG TABLET PO PRN ×2 (03:56→23:39)
[2021-12-02 04:00] VITALS: BP 174/62
[2021-12-02] MEDS: LANSOPRAZOLE 30MG DR CAPSULE GT SCH (06:09)
[2021-12-02] MEDS: BLOOD SUGAR DIAGNOSTIC STRIP TEST SCH ×4 (06:09→20:43)
[2021-12-02] MEDS: INSULIN LISPRO 100 UNITS/ML SUBCUT SCH ×4 (06:09→20:43)
[2021-12-02 08:00] VITALS: BP 158/63
[2021-12-02] MEDS: LOSARTAN POTASSIUM 100 MG TABLET PO SCH (09:00)
[2021-12-02] MEDS: DOCUSATE SODIUM SUGAR FREE 100MG/10ML UDC NG SCH ×2 (09:53→17:00)
[2021-12-02] MEDS: PREDNISONE 10MG TABLET PO SCH (09:53)
[2021-12-02] MEDS: SERTRALINE HCL 50MG TABLET PO SCH (09:53)
[2021-12-02 10:10] LABS: CHLORIDE 95 mEq/L (98-107); PHOSPHORUS 3.6 mg/dL (2.5-4.9)
[2021-12-02 12:00] VITALS: BP 154/62
[2021-12-02 13:02] LABS: HEMATOCRIT. 25.1 % (36.0-48.0); HEMOGLOBIN. 8.3 g/dL (12.0-16.0); MEAN CORPUSCULAR HEMOGLOBIN 33.9 pg (28.0-32.0); MEAN CORPUSCULAR VOLUME 102.1 fL (81.0-99.0); MEAN PLATELET VOLUME 9.7 fl (7.4-10.4); PLATELET 257 x1000/uL (130-400); RED BLOOD CELL COUNT 2.46 mill/uL (4.2-5.4); RED CELL DISTRIBUTION WIDTH 18.6 % (11.6-14.6)
[2021-12-02 15:29] LABS: PLATELET ESTIMATE NORMAL
[2021-12-02 16:00] VITALS: BP 154/54
[2021-12-02] MEDS: AMLODIPINE 5MG TABLET PO SCH (16:00)
[2021-12-02 20:00] VITALS: BP 140/45
[2021-12-02] MEDS: EPOETIN ALFA-EPBX 4,000 UNIT/ML VIAL SUBCUT SCH (20:41)
[2021-12-02] MEDS: MIRTAZAPINE 15MG TABLET PO SCH (20:43)
[2021-12-03] VITALS: BP 177/62
[2021-12-03 04:00] VITALS: BP 120/44
[2021-12-03] MEDS: LANSOPRAZOLE 30MG DR CAPSULE GT SCH (06:11)
[2021-12-03] MEDS: BLOOD SUGAR DIAGNOSTIC STRIP TEST SCH ×4 (06:11→21:00)
[2021-12-03] MEDS: INSULIN LISPRO 100 UNITS/ML SUBCUT SCH ×4 (06:11→22:14)
[2021-12-03 08:00] VITALS: BP 128/46
[2021-12-03 08:29] LABS: HEMATOCRIT. 22.5 % (36.0-48.0); HEMOGLOBIN. 8.2 g/dL (12.0-16.0); MEAN CORPUSCULAR HEMOGLOBIN 36.3 pg (28.0-32.0); MEAN CORPUSCULAR VOLUME 99.7 fL (81.0-99.0); MEAN PLATELET VOLUME 9.7 fl (7.4-10.4); PLATELET 262 x1000/uL (130-400); RED BLOOD CELL COUNT 2.26 mill/uL (4.2-5.4); RED CELL DISTRIBUTION WIDTH 18.6 % (11.6-14.6)
[2021-12-03 09:07] LABS: CHLORIDE 101 mEq/L (98-107)
[2021-12-03] MEDS: DOCUSATE SODIUM SUGAR FREE 100MG/10ML UDC NG SCH ×2 (09:16→17:53)
[2021-12-03] MEDS: LOSARTAN POTASSIUM 100 MG TABLET PO SCH (09:16)
[2021-12-03] MEDS: AMLODIPINE 5MG TABLET PO SCH (09:17)
[2021-12-03] MEDS: SERTRALINE HCL 50MG TABLET PO SCH (09:17)
[2021-12-03 09:32] LABS: PHOSPHORUS 2.7 mg/dL (2.5-4.9)
[2021-12-03 12:00] VITALS: BP 149/42
[2021-12-03 13:50] LABS: PLATELET ESTIMATE NORMAL
[2021-12-03 16:00] VITALS: BP 139/48
[2021-12-03 20:00] VITALS: BP 156/50
[2021-12-03] MEDS: MIRTAZAPINE 15MG TABLET PO SCH (22:13)
[2021-12-04] VITALS: BP 151/55
[2021-12-04 04:00] VITALS: BP 179/64
[2021-12-04] MEDS: CLONIDINE 0.1MG TABLET PO PRN ×2 (05:06→09:01)
[2021-12-04] MEDS: BLOOD SUGAR DIAGNOSTIC STRIP TEST SCH ×4 (06:45→21:23)
[2021-12-04] MEDS: LANSOPRAZOLE 30MG DR CAPSULE GT SCH (06:46)
[2021-12-04] MEDS: INSULIN LISPRO 100 UNITS/ML SUBCUT SCH ×4 (06:47→21:00)
[2021-12-04 08:00] VITALS: BP 172/59
[2021-12-04] MEDS: LOSARTAN POTASSIUM 100 MG TABLET PO SCH (09:01)
[2021-12-04] MEDS: AMLODIPINE 5MG TABLET PO SCH (09:01)
[2021-12-04] MEDS: DOCUSATE SODIUM SUGAR FREE 100MG/10ML UDC NG SCH ×2 (09:01→17:32)
[2021-12-04] MEDS: SERTRALINE HCL 50MG TABLET PO SCH (09:02)
[2021-12-04 12:00] VITALS: BP 155/50
[2021-12-04] MEDS: ACETAMINOPHEN 650MG/20.3ML UDC GT PRN (12:04)
[2021-12-04 13:36] LABS: HEMATOCRIT. 22.1 % (36.0-48.0); HEMOGLOBIN. 7.4 g/dL (12.0-16.0); MEAN CORPUSCULAR HEMOGLOBIN 33.2 pg (28.0-32.0); MEAN CORPUSCULAR VOLUME 99.7 fL (81.0-99.0); PLATELET 309 x1000/uL (130-400); RED BLOOD CELL COUNT 2.22 mill/uL (4.2-5.4); RED CELL DISTRIBUTION WIDTH 18.7 % (11.6-14.6)
[2021-12-04 15:53] LABS: PLATELET ESTIMATE NORMAL
[2021-12-04 16:00] VITALS: BP 155/57
[2021-12-04] MEDS: EPOETIN ALFA-EPBX 4,000 UNIT/ML VIAL SUBCUT SCH (21:31)
[2021-12-04] MEDS: MIRTAZAPINE 15MG TABLET PO SCH (21:31)
[2021-12-04] MEDS: INSULIN GLARGINE 100 UNITS/ML SUBCUT SCH (21:33)
[2021-12-04 23:28] VITALS: BP 134/62
[2021-12-05] VITALS: BP 155/65
[2021-12-05 04:00] VITALS: BP 154/55
[2021-12-05] MEDS: BLOOD SUGAR DIAGNOSTIC STRIP TEST SCH ×4 (05:48→21:00)
[2021-12-05] MEDS: LANSOPRAZOLE 30MG DR CAPSULE GT SCH (05:51)
[2021-12-05] MEDS: INSULIN LISPRO 100 UNITS/ML SUBCUT SCH ×4 (06:14→21:35)
[2021-12-05 07:32] LABS: HEMATOCRIT. 24.9 % (36.0-48.0); HEMOGLOBIN. 7.9 g/dL (12.0-16.0); MEAN CORPUSCULAR HEMOGLOBIN 34.5 pg (28.0-32.0); MEAN CORPUSCULAR VOLUME 108.3 fL (81.0-99.0); MEAN PLATELET VOLUME 8.5 fl (7.4-10.4); PLATELET 324 x1000/uL (130-400); RED CELL DISTRIBUTION WIDTH 19.9 % (11.6-14.6)
[2021-12-05 08:00] VITALS: BP 149/55
[2021-12-05 08:56] LABS: PHOSPHORUS 1.9 mg/dL (2.5-4.9)
[2021-12-05] MEDS: LOSARTAN POTASSIUM 100 MG TABLET PO SCH (09:12)
[2021-12-05] MEDS: SERTRALINE HCL 50MG TABLET PO SCH (09:12)
[2021-12-05] MEDS: DOCUSATE SODIUM SUGAR FREE 100MG/10ML UDC NG SCH ×2 (09:12→17:00)
[2021-12-05] MEDS: AMLODIPINE 10MG TABLET PO SCH (09:12)
[2021-12-05] MEDS: INSULIN GLARGINE 100 UNITS/ML SUBCUT SCH ×2 (09:18→21:35)
[2021-12-05 10:33] LABS: PLATELET ESTIMATE NORMAL
[2021-12-05 12:15] VITALS: BP 140/45
[2021-12-05 16:00] VITALS: BP 138/53
[2021-12-05] MEDS: MIRTAZAPINE 15MG TABLET PO SCH (21:33)
[2021-12-06] VITALS: BP 114/56
[2021-12-06] MEDS: ACETAMINOPHEN 650MG/20.3ML UDC GT PRN (03:59)
[2021-12-06 04:00] VITALS: BP 132/60
[2021-12-06] MEDS: BLOOD SUGAR DIAGNOSTIC STRIP TEST SCH ×4 (05:55→21:19)
[2021-12-06] MEDS: LANSOPRAZOLE 30MG DR CAPSULE GT SCH (05:55)
[2021-12-06] MEDS: INSULIN LISPRO 100 UNITS/ML SUBCUT SCH ×4 (06:13→21:00)
[2021-12-06 08:00] VITALS: BP 166/64
[2021-12-06] MEDS: DOCUSATE SODIUM SUGAR FREE 100MG/10ML UDC NG SCH ×2 (08:48→16:05)
[2021-12-06] MEDS: SERTRALINE HCL 50MG TABLET PO SCH (08:48)
[2021-12-06] MEDS: LOSARTAN POTASSIUM 100 MG TABLET PO SCH (08:48)
[2021-12-06] MEDS: AMLODIPINE 10MG TABLET PO SCH (08:49)
[2021-12-06 09:26] LABS: HEMATOCRIT. 25.6 % (36.0-48.0); HEMOGLOBIN. 8.7 g/dL (12.0-16.0); MEAN CORPUSCULAR VOLUME 100.4 fL (81.0-99.0); MEAN PLATELET VOLUME 9.2 fl (7.4-10.4); PLATELET 439 x1000/uL (130-400); RED BLOOD CELL COUNT 2.55 mill/uL (4.2-5.4); RED CELL DISTRIBUTION WIDTH 18.6 % (11.6-14.6)
[2021-12-06 10:53] LABS: PLATELET ESTIMATE INCREASED
[2021-12-06] MEDS: INSULIN GLARGINE 100 UNITS/ML SUBCUT SCH ×2 (11:24→21:20)
[2021-12-06 12:00] VITALS: BP 122/56
[2021-12-06 16:00] VITALS: BP 134/62
[2021-12-06 20:00] VITALS: BP 142/44
[2021-12-06] MEDS: EPOETIN ALFA-EPBX 4,000 UNIT/ML VIAL SUBCUT SCH (21:19)
[2021-12-06] MEDS: MIRTAZAPINE 15MG TABLET PO SCH (21:19)
[2021-12-06] MEDS: GUAIFENESIN-DM 200MG-20MG/10ML UDC PO PRN (22:22)
[2021-12-07] VITALS: BP 144/39
[2021-12-07 04:00] VITALS: BP 138/42
[2021-12-07] MEDS: LANSOPRAZOLE 30MG DR CAPSULE GT SCH (06:05)
[2021-12-07] MEDS: INSULIN LISPRO 100 UNITS/ML SUBCUT SCH ×4 (06:05→21:56)
[2021-12-07] MEDS: GUAIFENESIN-DM 200MG-20MG/10ML UDC PO PRN (06:05)
[2021-12-07] MEDS: BLOOD SUGAR DIAGNOSTIC STRIP TEST SCH ×4 (06:05→21:00)
[2021-12-07 06:25] LABS: HEMOGLOBIN. 8.5 g/dL (12.0-16.0); MEAN CORPUSCULAR HEMOGLOBIN 34.3 pg (28.0-32.0); MEAN PLATELET VOLUME 8.8 fl (7.4-10.4); PLATELET 399 x1000/uL (130-400); RED BLOOD CELL COUNT 2.47 mill/uL (4.2-5.4); RED CELL DISTRIBUTION WIDTH 18.6 % (11.6-14.6)
[2021-12-07 06:48] LABS: PHOSPHORUS 2.3 mg/dL (2.5-4.9)
[2021-12-07 08:00] VITALS: BP 149/53
[2021-12-07] MEDS: LOSARTAN POTASSIUM 100 MG TABLET PO SCH (09:10)
[2021-12-07] MEDS: ACETAMINOPHEN 650MG/20.3ML UDC GT PRN (09:10)
[2021-12-07] MEDS: SERTRALINE HCL 50MG TABLET PO SCH (09:10)
[2021-12-07] MEDS: AMLODIPINE 10MG TABLET PO SCH (09:10)
[2021-12-07] MEDS: INSULIN GLARGINE 100 UNITS/ML SUBCUT SCH ×2 (09:12→21:55)
[2021-12-07] MEDS: DOCUSATE SODIUM SUGAR FREE 100MG/10ML UDC NG SCH ×2 (09:13→17:07)
[2021-12-07 12:00] VITALS: BP 145/43
[2021-12-07] MEDS ORDERED: VANCOMYCIN 1GM PMX (XELLIA) 200 ML IV NR (12:30)
[2021-12-07 14:03] LABS: PLATELET ESTIMATE NORMAL
[2021-12-07] MEDS: CEFEPIME 500 MG in DEXTROSE 5% WATER 50 ML IV SCH (14:37)
[2021-12-07 16:00] VITALS: BP 135/78
[2021-12-07 20:00] VITALS: BP 105/50
[2021-12-08] VITALS (10 sets, daily range): BP systolic 105–148; BP diastolic 31–68
[2021-12-08] MEDS: GUAIFENESIN-DM 200MG-20MG/10ML UDC PO PRN (01:58)
[2021-12-08] MEDS: ACETAMINOPHEN 650MG/20.3ML UDC GT PRN ×2 (01:59→16:59)
[2021-12-08 06:12] LABS: HEMATOCRIT. 22.2 % (36.0-48.0); HEMOGLOBIN. 7.5 g/dL (12.0-16.0); MEAN PLATELET VOLUME 8.5 fl (7.4-10.4); PLATELET 425 x1000/uL (130-400); RED BLOOD CELL COUNT 2.22 mill/uL (4.2-5.4); RED CELL DISTRIBUTION WIDTH 18.2 % (11.6-14.6)
[2021-12-08] MEDS: BLOOD SUGAR DIAGNOSTIC STRIP TEST SCH ×5 (06:40→20:57)
[2021-12-08] MEDS: INSULIN LISPRO 100 UNITS/ML SUBCUT SCH ×4 (06:43→21:00)
[2021-12-08] MEDS: LANSOPRAZOLE 30MG DR CAPSULE GT SCH (06:51)
[2021-12-08 09:18] LABS: BG BASE EXCESS 3.3 mmol/L (-2.0-2.0); BG CARBOXYHEMOGLOBIN 0.8 % (0.5-1.5); BG FRACTION INSPIRED OXYGEN 21; BG METHEMOGLOBIN 0.1 % (0.0-1.5); BG OXYGEN SATURATION 78.8 % (92.0-98.5); BG OXYHEMOGLOBIN 78.1 % (94.0-97.0); BG PCO2 37.2 mmHg (35.0-45.0); BG PH 7.478 (7.350-7.450); BG PO2 42.1 mmHg (75.0-100.0); BG SAMPLE SITE LEFT BRACHIAL; BG TOTAL HEMOGLOBIN 8.7 g/dL (12.0-18.0); BG VENT MODE ROOM AIR
[2021-12-08] MEDS ORDERED: ALBUTEROL (0.083%) 2.5MG/3ML NEB ONE (09:26)
[2021-12-08] MEDS: ALBUTEROL (0.083%) 2.5MG/3ML NEB HHN SCH ×3 (09:28→21:23)
[2021-12-08 09:35] LABS: PLATELET ESTIMATE INCREASED
[2021-12-08] MEDS: DOCUSATE SODIUM SUGAR FREE 100MG/10ML UDC NG SCH ×2 (09:51→16:59)
[2021-12-08] MEDS: LOSARTAN POTASSIUM 100 MG TABLET PO SCH (09:51)
[2021-12-08] MEDS: AMLODIPINE 10MG TABLET PO SCH (09:52)
[2021-12-08] MEDS: INSULIN GLARGINE 100 UNITS/ML SUBCUT SCH ×2 (09:59→22:00)
[2021-12-08] MEDS ORDERED: VANCOMYCIN 500MG PREMIX 100 ML IV NR (12:00)
[2021-12-08 15:06] LABS: 25-HYDROXY VITAMIN D3 55 ng/mL (.)
[2021-12-08] MEDS: CEFEPIME 500 MG in DEXTROSE 5% WATER 50 ML IV SCH (16:59)
[2021-12-08] MEDS: EPOETIN ALFA-EPBX 4,000 UNIT/ML VIAL SUBCUT SCH (20:55)
[2021-12-09] VITALS (19 sets, daily range): BP systolic 109–148; BP diastolic 40–87
[2021-12-09] MEDS: ALBUTEROL (0.083%) 2.5MG/3ML NEB HHN SCH ×4 (01:32→20:05)
[2021-12-09 05:49] LABS: HEMATOCRIT. 22.2 % (36.0-48.0); HEMOGLOBIN. 7.3 g/dL (12.0-16.0); MEAN CORPUSCULAR HEMOGLOBIN 33.9 pg (28.0-32.0); MEAN CORPUSCULAR VOLUME 103.3 fL (81.0-99.0); MEAN PLATELET VOLUME 8.5 fl (7.4-10.4); PLATELET 454 x1000/uL (130-400); RED BLOOD CELL COUNT 2.14 mill/uL (4.2-5.4); RED CELL DISTRIBUTION WIDTH 18.6 % (11.6-14.6)
[2021-12-09] MEDS: LANSOPRAZOLE 30MG DR CAPSULE GT SCH (06:26)
[2021-12-09] MEDS: BLOOD SUGAR DIAGNOSTIC STRIP TEST SCH ×4 (07:56→21:00)
[2021-12-09] MEDS: LOSARTAN POTASSIUM 100 MG TABLET PO SCH (08:12)
[2021-12-09] MEDS: DOCUSATE SODIUM SUGAR FREE 100MG/10ML UDC NG SCH ×2 (08:12→17:00)
[2021-12-09] MEDS: AMLODIPINE 10MG TABLET PO SCH (08:13)
[2021-12-09] MEDS: INSULIN LISPRO 100 UNITS/ML SUBCUT SCH ×4 (08:13→21:39)
[2021-12-09 10:37] LABS: PLATELET ESTIMATE INCREASED
[2021-12-09] MEDS: INSULIN GLARGINE 100 UNITS/ML SUBCUT SCH ×2 (10:37→21:39)
[2021-12-09] MEDS: CEFEPIME 500 MG in DEXTROSE 5% WATER 50 ML IV SCH (13:00)
[2021-12-10] VITALS (12 sets, daily range): BP systolic 113–142; BP diastolic 52–71
[2021-12-10] MEDS: ALBUTEROL (0.083%) 2.5MG/3ML NEB HHN SCH ×3 (01:13→20:15)
[2021-12-10] MEDS: GUAIFENESIN-DM 200MG-20MG/10ML UDC PO PRN (03:05)
[2021-12-10 06:43] LABS: HEMATOCRIT. 28.1 % (36.0-48.0); HEMOGLOBIN. 9.6 g/dL (12.0-16.0); MEAN CORPUSCULAR HEMOGLOBIN 33.1 pg (28.0-32.0); MEAN PLATELET VOLUME 8.7 fl (7.4-10.4); PLATELET 476 x1000/uL (130-400); RED CELL DISTRIBUTION WIDTH 18.3 % (11.6-14.6)
[2021-12-10] MEDS: LANSOPRAZOLE 30MG DR CAPSULE GT SCH (06:44)
[2021-12-10] MEDS: BLOOD SUGAR DIAGNOSTIC STRIP TEST SCH ×4 (08:23→20:37)
[2021-12-10] MEDS: LOSARTAN POTASSIUM 100 MG TABLET PO SCH (09:30)
[2021-12-10] MEDS: DOCUSATE SODIUM SUGAR FREE 100MG/10ML UDC NG SCH ×2 (09:30→18:05)
[2021-12-10] MEDS: AMLODIPINE 10MG TABLET PO SCH (09:39)
[2021-12-10] MEDS: INSULIN LISPRO 100 UNITS/ML SUBCUT SCH ×4 (09:43→21:01)
[2021-12-10] MEDS: INSULIN GLARGINE 100 UNITS/ML SUBCUT SCH (09:44)
[2021-12-10 09:51] LABS: PLATELET ESTIMATE INCREASED
[2021-12-10] MEDS: DEXTROSE 50% WATER 50ML SYRINGE IV PRN (12:36)
[2021-12-10] MEDS: METHYLPREDNISOLONE SOD SUCC 40 MG/ML VIAL IV SCH ×2 (12:39→21:01)
[2021-12-10] MEDS: CEFEPIME 500 MG in DEXTROSE 5% WATER 50 ML IV SCH (14:40)
[2021-12-10] MEDS: CINACALCET HCL 30MG TABLET PO SCH (18:05)
[2021-12-10] MEDS: EPOETIN ALFA-EPBX 4,000 UNIT/ML VIAL SUBCUT SCH (21:03)
[2021-12-11] VITALS (12 sets, daily range): BP systolic 91–139; BP diastolic 44–61
[2021-12-11] MEDS: INSULIN GLARGINE 100 UNITS/ML SUBCUT SCH ×3 (01:01→22:03)
[2021-12-11] MEDS: ALBUTEROL (0.083%) 2.5MG/3ML NEB HHN SCH ×4 (01:29→21:53)
[2021-12-11] MEDS: METHYLPREDNISOLONE SOD SUCC 40 MG/ML VIAL IV SCH ×2 (05:59→13:24)
[2021-12-11] MEDS: LANSOPRAZOLE 30MG DR CAPSULE GT SCH (05:59)
[2021-12-11] MEDS: BLOOD SUGAR DIAGNOSTIC STRIP TEST SCH ×4 (07:30→21:31)
[2021-12-11] MEDS: LOSARTAN POTASSIUM 100 MG TABLET PO SCH (08:49)
[2021-12-11] MEDS: AMLODIPINE 10MG TABLET PO SCH (08:49)
[2021-12-11] MEDS: DOCUSATE SODIUM SUGAR FREE 100MG/10ML UDC NG SCH ×2 (08:49→18:39)
[2021-12-11] MEDS: INSULIN LISPRO 100 UNITS/ML SUBCUT SCH ×4 (08:50→22:01)
[2021-12-11 11:20] LABS: HEMATOCRIT. 33.3 % (36.0-48.0); HEMOGLOBIN. 10.8 g/dL (12.0-16.0); MEAN CORPUSCULAR HEMOGLOBIN 31.8 pg (28.0-32.0); MEAN CORPUSCULAR VOLUME 98.3 fL (81.0-99.0); RED BLOOD CELL COUNT 3.39 mill/uL (4.2-5.4); RED CELL DISTRIBUTION WIDTH 18.8 % (11.6-14.6)
[2021-12-11 11:38] LABS: PHOSPHORUS 3.4 mg/dL (2.5-4.9)
[2021-12-11 12:42] LABS: PLATELET ESTIMATE INCREASED
[2021-12-11] MEDS: GUAIFENESIN-DM 200MG-20MG/10ML UDC PO PRN (13:12)
[2021-12-11] MEDS: ACETAMINOPHEN 650MG/20.3ML UDC GT PRN ×3 (13:12→23:58)
[2021-12-11] MEDS: CEFEPIME 500 MG in DEXTROSE 5% WATER 50 ML IV SCH (13:52)
[2021-12-11 14:26] LABS: BG BASE EXCESS 0.3 mmol/L (-2.0-2.0); BG CARBOXYHEMOGLOBIN 0.1 % (0.5-1.5); BG DEOXYHEMOGLOBIN 0.9 % (0.0-5.0); BG HCO3 ACT 21.1 mmol/L (22.0-26.0); BG METHEMOGLOBIN 0.3 % (0.0-1.5); BG OXYGEN SATURATION 99.1 % (92.0-98.5); BG OXYHEMOGLOBIN 98.7 % (94.0-97.0); BG PCO2 23.6 mmHg (35.0-45.0); BG PH 7.569 (7.350-7.450); BG PO2 142.3 mmHg (75.0-100.0); BG SAMPLE SITE RIGHT BRACHIAL; BG TOTAL HEMOGLOBIN 11.5 g/dL (12.0-18.0); BG VENT MODE NASAL CANNULA
[2021-12-11] MEDS: QUETIAPINE FUMARATE 25MG TABLET PO SCH (15:20)
[2021-12-11 15:33] LABS: MEAN PLATELET VOLUME 8.5 fl (7.4-10.4); PLATELET 556 x1000/uL (130-400)
[2021-12-11] MEDS ORDERED: VANCOMYCIN 500MG PREMIX 100 ML IV NR (18:00)
[2021-12-11] MEDS: CINACALCET HCL 30MG TABLET PO SCH (18:39)
[2021-12-11 22:20] LABS: HEPATITIS B SURFACE ANTIGEN NEGATIVE
[2021-12-12] VITALS: BP 104/45
[2021-12-12] MEDS: ALBUTEROL (0.083%) 2.5MG/3ML NEB HHN SCH ×4 (02:51→20:21)
[2021-12-12] MEDS: GUAIFENESIN-DM 200MG-20MG/10ML UDC PO PRN (03:13)
[2021-12-12 04:00] VITALS: BP 135/52
[2021-12-12] MEDS: DEXTROSE 50% WATER 50ML SYRINGE IV PRN ×2 (07:16→19:47)
[2021-12-12] MEDS: BLOOD SUGAR DIAGNOSTIC STRIP TEST SCH ×4 (07:43→21:00)
[2021-12-12 07:52] LABS: HEMATOCRIT. 33.3 % (36.0-48.0); HEMOGLOBIN. 11.2 g/dL (12.0-16.0); MEAN CORPUSCULAR HEMOGLOBIN 33.1 pg (28.0-32.0); MEAN CORPUSCULAR VOLUME 98.6 fL (81.0-99.0); MEAN PLATELET VOLUME 8.1 fl (7.4-10.4); PLATELET 523 x1000/uL (130-400); RED BLOOD CELL COUNT 3.37 mill/uL (4.2-5.4)
[2021-12-12 08:00] VITALS: BP 136/49
[2021-12-12] MEDS: LANSOPRAZOLE 30MG DR CAPSULE GT SCH (08:01)
[2021-12-12] MEDS: INSULIN LISPRO 100 UNITS/ML SUBCUT SCH ×4 (08:01→21:00)
[2021-12-12 08:08] LABS: PHOSPHORUS 2.1 mg/dL (2.5-4.9)
[2021-12-12] MEDS: QUETIAPINE FUMARATE 25MG TABLET PO SCH (09:10)
[2021-12-12] MEDS: LOSARTAN POTASSIUM 100 MG TABLET PO SCH (09:10)
[2021-12-12] MEDS: DOCUSATE SODIUM SUGAR FREE 100MG/10ML UDC NG SCH ×2 (09:11→17:00)
[2021-12-12] MEDS: AMLODIPINE 10MG TABLET PO SCH (09:14)
[2021-12-12] MEDS: INSULIN GLARGINE 100 UNITS/ML SUBCUT SCH (10:00)
[2021-12-12 12:00] VITALS: BP 138/59
[2021-12-12] MEDS: CEFEPIME 500 MG in DEXTROSE 5% WATER 50 ML IV SCH (14:26)
[2021-12-12 14:29] LABS: NUCLEATED RED BLOOD CELLS 1 /100 WBC; PLATELET ESTIMATE INCREASED
[2021-12-12 16:00] VITALS: BP 148/68
[2021-12-12] MEDS: CINACALCET HCL 30MG TABLET PO SCH (18:00)
[2021-12-12] MEDS ORDERED: IPRATROPIUM/ALBUTEROL 0.5-3(2.5)MG/3ML NEB ONE (18:47)
[2021-12-12 20:00] VITALS: BP 164/58
[2021-12-12] MEDS ORDERED: IPRATROPIUM/ALBUTEROL 0.5-3(2.5)MG/3ML NEB HHN PRN (20:00)
[2021-12-12] MEDS: DEXT 10% WATER 1,000 ML IV SCH (20:25)
[2021-12-12] MEDS: MIRTAZAPINE 15MG TABLET PO SCH (22:28)
[2021-12-13] VITALS (10 sets, daily range): BP systolic 90–167; BP diastolic 40–79
[2021-12-13] MEDS: ALBUTEROL (0.083%) 2.5MG/3ML NEB HHN SCH ×4 (01:50→21:35)
[2021-12-13] MEDS: ACETYLCYSTEINE 200MG/ML 20% VIAL 4ML INH SCH ×4 (01:50→21:35)
[2021-12-13] MEDS: BLOOD SUGAR DIAGNOSTIC STRIP TEST SCH ×4 (06:53→21:00)
[2021-12-13] MEDS: INSULIN LISPRO 100 UNITS/ML SUBCUT SCH ×4 (08:10→22:53)
[2021-12-13 09:24] LABS: HEMATOCRIT. 32.8 % (36.0-48.0); HEMOGLOBIN. 11.3 g/dL (12.0-16.0); MEAN CORPUSCULAR HEMOGLOBIN 34.1 pg (28.0-32.0); MEAN CORPUSCULAR VOLUME 99.2 fL (81.0-99.0); PLATELET 554 x1000/uL (130-400); RED CELL DISTRIBUTION WIDTH 17.3 % (11.6-14.6)
[2021-12-13] MEDS: DOCUSATE SODIUM SUGAR FREE 100MG/10ML UDC NG SCH ×2 (09:27→18:07)
[2021-12-13] MEDS: LANSOPRAZOLE 30MG DR CAPSULE GT SCH (09:27)
[2021-12-13] MEDS: QUETIAPINE FUMARATE 25MG TABLET PO SCH (09:29)
[2021-12-13 10:38] LABS: PHOSPHORUS 2.1 mg/dL (2.5-4.9)
[2021-12-13 10:42] LABS: NUCLEATED RED BLOOD CELLS 1 /100 WBC
[2021-12-13 10:43] LABS: PLATELET ESTIMATE INCREASED
[2021-12-13] MEDS: GUAIFENESIN-DM 200MG-20MG/10ML UDC PO PRN ×2 (11:28→18:09)
[2021-12-13] MEDS: ACETAMINOPHEN 650MG/20.3ML UDC GT PRN (11:28)
[2021-12-13] MEDS: LOSARTAN POTASSIUM 100 MG TABLET PO SCH (11:38)
[2021-12-13] MEDS: AMLODIPINE 10MG TABLET PO SCH (12:00)
[2021-12-13] MEDS ORDERED: SODIUM PHOS,M-BASIC-D-BASIC 15 MM in DEXT 5% WATER 245 ML IV SCH (16:00)
[2021-12-13] MEDS: CINACALCET HCL 30MG TABLET PO SCH (18:13)
[2021-12-13] MEDS: MIRTAZAPINE 15MG TABLET PO SCH (22:52)
[2021-12-14] VITALS: BP 139/54
[2021-12-14] MEDS: ALBUTEROL (0.083%) 2.5MG/3ML NEB HHN SCH ×4 (01:27→21:02)
[2021-12-14 04:00] VITALS: BP 136/48
[2021-12-14] MEDS: BLOOD SUGAR DIAGNOSTIC STRIP TEST SCH ×4 (07:40→21:00)
[2021-12-14 08:00] VITALS: BP 140/41
[2021-12-14 08:27] LABS: HEMATOCRIT. 31.6 % (36.0-48.0); HEMOGLOBIN. 10.8 g/dL (12.0-16.0); MEAN CORPUSCULAR VOLUME 96.6 fL (81.0-99.0); MEAN PLATELET VOLUME 7.9 fl (7.4-10.4); PLATELET 545 x1000/uL (130-400); RED BLOOD CELL COUNT 3.27 mill/uL (4.2-5.4)
[2021-12-14 08:49] LABS: PHOSPHORUS 1.2 mg/dL (2.5-4.9)
[2021-12-14] MEDS: DOCUSATE SODIUM SUGAR FREE 100MG/10ML UDC NG SCH ×2 (09:00→17:00)
[2021-12-14] MEDS: ACETYLCYSTEINE 200MG/ML 20% VIAL 4ML INH SCH ×4 (09:09→22:00)
[2021-12-14] MEDS: INSULIN LISPRO 100 UNITS/ML SUBCUT SCH ×4 (09:36→22:31)
[2021-12-14] MEDS: LOSARTAN POTASSIUM 100 MG TABLET PO SCH (09:37)
[2021-12-14] MEDS: QUETIAPINE FUMARATE 25MG TABLET PO SCH (09:37)
[2021-12-14] MEDS: AMLODIPINE 10MG TABLET PO SCH (09:38)
[2021-12-14] MEDS: LANSOPRAZOLE 30MG DR CAPSULE GT SCH (09:39)
[2021-12-14 10:56] LABS: PLATELET ESTIMATE INCREASED
[2021-12-14 12:00] VITALS: BP 149/62
[2021-12-14 16:00] VITALS: BP 164/53
[2021-12-14] MEDS: DEXT 10% WATER 1,000 ML IV SCH (17:55)
[2021-12-14] MEDS: POTASSIUM-SODIUM PHOSPHATE POWDER PACKET PO SCH ×2 (18:47→22:30)
[2021-12-14] MEDS: CINACALCET HCL 30MG TABLET PO SCH (19:07)
[2021-12-14 20:00] VITALS: BP 165/55
[2021-12-14] MEDS: MIRTAZAPINE 15MG TABLET PO SCH (22:29)
[2021-12-15] VITALS: BP 157/64
[2021-12-15] MEDS: DEXT 10% WATER 1,000 ML IV SCH ×2 (00:32→18:01)
[2021-12-15 04:00] VITALS: BP 170/53
[2021-12-15] MEDS: BLOOD SUGAR DIAGNOSTIC STRIP TEST SCH ×4 (06:46→21:29)
[2021-12-15] MEDS: LANSOPRAZOLE 30MG DR CAPSULE GT SCH (07:59)
[2021-12-15 08:00] VITALS: BP 177/79
[2021-12-15] MEDS: INSULIN LISPRO 100 UNITS/ML SUBCUT SCH ×4 (08:00→21:00)
[2021-12-15 09:04] LABS: PHOSPHORUS 2.2 mg/dL (2.5-4.9)
[2021-12-15] MEDS: ALBUTEROL (0.083%) 2.5MG/3ML NEB HHN SCH ×4 (09:10→15:53)
[2021-12-15 09:16] LABS: HEMATOCRIT. 32.6 % (36.0-48.0); HEMOGLOBIN. 10.6 g/dL (12.0-16.0); MEAN CORPUSCULAR HEMOGLOBIN 32.8 pg (28.0-32.0); MEAN CORPUSCULAR VOLUME 101.1 fL (81.0-99.0); MEAN PLATELET VOLUME 8.3 fl (7.4-10.4); PLATELET 443 x1000/uL (130-400); RED BLOOD CELL COUNT 3.22 mill/uL (4.2-5.4); RED CELL DISTRIBUTION WIDTH 18.1 % (11.6-14.6)
[2021-12-15] MEDS: DOCUSATE SODIUM SUGAR FREE 100MG/10ML UDC NG SCH ×2 (09:27→17:29)
[2021-12-15] MEDS: QUETIAPINE FUMARATE 25MG TABLET PO SCH (09:27)
[2021-12-15] MEDS: POTASSIUM-SODIUM PHOSPHATE POWDER PACKET PO SCH ×2 (09:27→17:29)
[2021-12-15] MEDS: AMLODIPINE 10MG TABLET PO SCH ×2 (09:27→21:00)
[2021-12-15] MEDS: LOSARTAN POTASSIUM 100 MG TABLET PO SCH (09:27)
[2021-12-15 12:00] VITALS: BP 165/57
[2021-12-15] MEDS: ACETYLCYSTEINE 200MG/ML 20% VIAL 4ML INH SCH (15:04)
[2021-12-15 16:00] VITALS: BP 165/43
[2021-12-15] MEDS: CINACALCET HCL 30MG TABLET PO SCH (17:30)
[2021-12-15 20:00] VITALS: BP 171/56
[2021-12-15] MEDS: MIRTAZAPINE 15MG TABLET PO SCH (21:38)
[2021-12-16] VITALS (7 sets, daily range): BP systolic 114–170; BP diastolic 32–63
[2021-12-16] MEDS: ACETYLCYSTEINE 200MG/ML 20% VIAL 4ML INH SCH ×2 (03:35→14:00)
[2021-12-16] MEDS: BLOOD SUGAR DIAGNOSTIC STRIP TEST SCH ×4 (05:29→21:53)
[2021-12-16 09:07] LABS: HEMATOCRIT. 28.1 % (36.0-48.0); HEMOGLOBIN. 9.7 g/dL (12.0-16.0); MEAN CORPUSCULAR HEMOGLOBIN 33.5 pg (28.0-32.0); MEAN CORPUSCULAR VOLUME 97.1 fL (81.0-99.0); MEAN PLATELET VOLUME 7.9 fl (7.4-10.4); PLATELET 520 x1000/uL (130-400); RED BLOOD CELL COUNT 2.89 mill/uL (4.2-5.4); RED CELL DISTRIBUTION WIDTH 17.2 % (11.6-14.6)
[2021-12-16] MEDS: LOSARTAN POTASSIUM 100 MG TABLET PO SCH (09:17)
[2021-12-16] MEDS: POTASSIUM-SODIUM PHOSPHATE POWDER PACKET PO SCH ×2 (09:18→19:07)
[2021-12-16] MEDS: QUETIAPINE FUMARATE 25MG TABLET PO SCH (09:18)
[2021-12-16] MEDS: DOCUSATE SODIUM SUGAR FREE 100MG/10ML UDC NG SCH ×2 (09:19→17:00)
[2021-12-16] MEDS: INSULIN LISPRO 100 UNITS/ML SUBCUT SCH ×4 (09:22→21:00)
[2021-12-16 09:26] LABS: PHOSPHORUS 2.3 mg/dL (2.5-4.9)
[2021-12-16] MEDS: LANSOPRAZOLE 30MG DR CAPSULE GT SCH (09:56)
[2021-12-16] MEDS: AMLODIPINE 10MG TABLET PO SCH ×2 (09:58→21:54)
[2021-12-16] MEDS: ALBUTEROL (0.083%) 2.5MG/3ML NEB HHN SCH ×2 (15:04→21:35)
[2021-12-16 16:56] LABS: PLATELET ESTIMATE INCREASED
[2021-12-16] MEDS: CINACALCET HCL 30MG TABLET PO SCH (18:31)
[2021-12-16] MEDS: ACETAMINOPHEN 650MG/20.3ML UDC GT PRN (18:32)
[2021-12-16] MEDS: MIRTAZAPINE 15MG TABLET PO SCH (21:54)
[2021-12-16] MEDS: EPOETIN ALFA-EPBX 4,000 UNIT/ML VIAL SUBCUT SCH (21:55)
[2021-12-17] VITALS: BP 148/84
[2021-12-17] MEDS: ACETYLCYSTEINE 200MG/ML 20% VIAL 4ML INH SCH ×3 (03:35→11:26)
[2021-12-17] MEDS: ALBUTEROL (0.083%) 2.5MG/3ML NEB HHN SCH ×4 (03:35→21:27)
[2021-12-17 04:00] VITALS: BP 165/46
[2021-12-17] MEDS: BLOOD SUGAR DIAGNOSTIC STRIP TEST SCH ×2 (06:46→12:40)
[2021-12-17 07:37] LABS: HEMOGLOBIN. 10.4 g/dL (12.0-16.0); MEAN CORPUSCULAR HEMOGLOBIN 33.3 pg (28.0-32.0); MEAN PLATELET VOLUME 7.7 fl (7.4-10.4); PLATELET 503 x1000/uL (130-400); RED BLOOD CELL COUNT 3.13 mill/uL (4.2-5.4); RED CELL DISTRIBUTION WIDTH 18.3 % (11.6-14.6)
[2021-12-17 08:00] VITALS: BP 129/43
[2021-12-17] MEDS: INSULIN LISPRO 100 UNITS/ML SUBCUT SCH ×4 (08:10→20:56)
[2021-12-17 09:54] LABS: PHOSPHORUS 2.1 mg/dL (2.5-4.9)
[2021-12-17] MEDS: DOCUSATE SODIUM SUGAR FREE 100MG/10ML UDC NG SCH ×2 (10:39→17:00)
[2021-12-17] MEDS: AMLODIPINE 10MG TABLET PO SCH ×2 (10:39→20:56)
[2021-12-17] MEDS: LANSOPRAZOLE 30MG DR CAPSULE GT SCH (10:39)
[2021-12-17] MEDS: QUETIAPINE FUMARATE 25MG TABLET PO SCH (10:39)
[2021-12-17] MEDS: LOSARTAN POTASSIUM 100 MG TABLET PO SCH (10:39)
[2021-12-17] MEDS: POTASSIUM-SODIUM PHOSPHATE POWDER PACKET PO SCH ×2 (10:40→17:00)
[2021-12-17 12:00] VITALS: BP 160/49
[2021-12-17 14:22] LABS: PLATELET ESTIMATE INCREASED
[2021-12-17 16:00] VITALS: BP 163/51
[2021-12-17] MEDS: CINACALCET HCL 30MG TABLET PO SCH (18:32)
[2021-12-17 20:00] VITALS: BP 141/41
[2021-12-17] MEDS: MIRTAZAPINE 15MG TABLET PO SCH (20:56)
[2021-12-17] MEDS: ACETAMINOPHEN 650MG/20.3ML UDC GT PRN (22:06)
[2021-12-18] VITALS (12 sets, daily range): BP systolic 123–153; BP diastolic 34–86
[2021-12-18] MEDS: ALBUTEROL (0.083%) 2.5MG/3ML NEB HHN SCH ×4 (01:52→21:01)
[2021-12-18 07:15] LABS: HEMATOCRIT. 28.7 % (36.0-48.0); HEMOGLOBIN. 9.5 g/dL (12.0-16.0); MEAN CORPUSCULAR HEMOGLOBIN 33.9 pg (28.0-32.0); MEAN PLATELET VOLUME 7.6 fl (7.4-10.4); PLATELET 471 x1000/uL (130-400); RED BLOOD CELL COUNT 2.79 mill/uL (4.2-5.4); RED CELL DISTRIBUTION WIDTH 18.6 % (11.6-14.6)
[2021-12-18 08:11] LABS: PHOSPHORUS 3.4 mg/dL (2.5-4.9)
[2021-12-18] MEDS: POTASSIUM-SODIUM PHOSPHATE POWDER PACKET PO SCH ×2 (08:28→17:24)
[2021-12-18] MEDS: LANSOPRAZOLE 30MG DR CAPSULE GT SCH (08:28)
[2021-12-18] MEDS: LOSARTAN POTASSIUM 100 MG TABLET PO SCH (08:28)
[2021-12-18] MEDS: INSULIN LISPRO 100 UNITS/ML SUBCUT SCH ×4 (08:29→20:53)
[2021-12-18] MEDS: AMLODIPINE 10MG TABLET PO SCH ×2 (08:44→20:52)
[2021-12-18] MEDS: DOCUSATE SODIUM SUGAR FREE 100MG/10ML UDC NG SCH ×2 (08:44→16:21)
[2021-12-18] MEDS: QUETIAPINE FUMARATE 25MG TABLET PO SCH (08:45)
[2021-12-18] MEDS: ACETAMINOPHEN 650MG/20.3ML UDC GT PRN (13:33)
[2021-12-18 13:35] LABS: PLATELET ESTIMATE INCREASED
[2021-12-18] MEDS: CINACALCET HCL 30MG TABLET PO SCH (17:24)
[2021-12-18] MEDS: MIRTAZAPINE 15MG TABLET PO SCH (20:51)
[2021-12-18] MEDS: EPOETIN ALFA-EPBX 4,000 UNIT/ML VIAL SUBCUT SCH (20:51)
[2021-12-18] MEDS: GUAIFENESIN-DM 200MG-20MG/10ML UDC PO PRN (21:25)
[2021-12-19] VITALS (7 sets, daily range): BP systolic 114–154; BP diastolic 30–61
[2021-12-19] MEDS: ALBUTEROL (0.083%) 2.5MG/3ML NEB HHN SCH ×4 (02:22→21:51)
[2021-12-19 07:12] LABS: HEMATOCRIT. 33.6 % (36.0-48.0); HEMOGLOBIN. 10.6 g/dL (12.0-16.0); MEAN CORPUSCULAR HEMOGLOBIN 33.8 pg (28.0-32.0); MEAN CORPUSCULAR VOLUME 107.5 fL (81.0-99.0); MEAN PLATELET VOLUME 7.4 fl (7.4-10.4); PLATELET 406 x1000/uL (130-400); RED BLOOD CELL COUNT 3.13 mill/uL (4.2-5.4)
[2021-12-19] MEDS: INSULIN LISPRO 100 UNITS/ML SUBCUT SCH ×3 (08:10→17:35)
[2021-12-19 08:19] LABS: PHOSPHORUS 3.5 mg/dL (2.5-4.9)
[2021-12-19] MEDS: DOCUSATE SODIUM SUGAR FREE 100MG/10ML UDC NG SCH ×2 (09:00→16:59)
[2021-12-19] MEDS: POTASSIUM-SODIUM PHOSPHATE POWDER PACKET PO SCH ×2 (09:20→17:28)
[2021-12-19] MEDS: LANSOPRAZOLE 30MG DR CAPSULE GT SCH (09:21)
[2021-12-19] MEDS: AMLODIPINE 10MG TABLET PO SCH (09:21)
[2021-12-19] MEDS: LOSARTAN POTASSIUM 100 MG TABLET PO SCH (09:21)
[2021-12-19] MEDS: QUETIAPINE FUMARATE 25MG TABLET PO SCH (09:21)
[2021-12-19 10:37] LABS: PLATELET ESTIMATE SLIGHTLY INCREASED
[2021-12-19] MEDS ORDERED: DEXTROSE 50% WATER 50ML SYRINGE IV PRN (14:15)
[2021-12-19] MEDS: CINACALCET HCL 30MG TABLET PO SCH (17:29)
[2021-12-19] MEDS ORDERED: BLOOD SUGAR DIAGNOSTIC STRIP TEST SCH (17:40)
== END 2021-12-19 22:50 | DRG 637 ==
LOC: ER 08:43 → 7WST 13:05 → ENRESERV 15:15 → 4WST 10-27 12:50 → UNDODISIN 11-07 07:52 → 7WST 11-07 07:52 → 4WST 11-07 07:52 → 7WST 11-07 08:32 → 7EST 11-13 12:38 → 6EST 11-28 11:07 → MICUSO 12-01 01:36 → 7EST 12-01 02:15 → 5EST 12-08 12:03 → 7WST 12-11 11:14
PROVIDERS: ADMIT Internal Medicine Pulmonary Disease; ATTEND Internal Medicine Pulmonary Disease
PROC: 5A1D70Z Performance of Urinary Filtration, Intermittent, Less than 6 Hours Per Day (ICD-10-PCS; 2021-10-22)
PROC: 5A1D70Z Performance of Urinary Filtration, Intermittent, Less than 6 Hours Per Day (ICD-10-PCS; 2021-10-24)
PROC: 5A1D70Z Performance of Urinary Filtration, Intermittent, Less than 6 Hours Per Day (ICD-10-PCS; 2021-10-28)
PROC: 5A1D70Z Performance of Urinary Filtration, Intermittent, Less than 6 Hours Per Day (ICD-10-PCS; 2021-10-29)
PROC: 5A1D70Z Performance of Urinary Filtration, Intermittent, Less than 6 Hours Per Day (ICD-10-PCS; 2021-11-01)
PROC: 5A1D70Z Performance of Urinary Filtration, Intermittent, Less than 6 Hours Per Day (ICD-10-PCS; 2021-11-04)
PROC: 30233N1 Transfusion of Nonautologous Red Blood Cells into Peripheral Vein, Percutaneous Approach (ICD-10-PCS; 2021-11-06)
PROC: 5A1D70Z Performance of Urinary Filtration, Intermittent, Less than 6 Hours Per Day (ICD-10-PCS; 2021-11-06)
PROC: 5A1D70Z Performance of Urinary Filtration, Intermittent, Less than 6 Hours Per Day (ICD-10-PCS; 2021-11-08)
PROC: 5A1D70Z Performance of Urinary Filtration, Intermittent, Less than 6 Hours Per Day (ICD-10-PCS; 2021-11-11)
PROC: 5A1D70Z Performance of Urinary Filtration, Intermittent, Less than 6 Hours Per Day (ICD-10-PCS; 2021-11-13)
PROC: 5A1D70Z Performance of Urinary Filtration, Intermittent, Less than 6 Hours Per Day (ICD-10-PCS; 2021-11-15)
PROC: 5A1D70Z Performance of Urinary Filtration, Intermittent, Less than 6 Hours Per Day (ICD-10-PCS; 2021-11-18)
PROC: 5A1D70Z Performance of Urinary Filtration, Intermittent, Less than 6 Hours Per Day (ICD-10-PCS; 2021-11-20)
PROC: 0DH64UZ Insertion of Feeding Device into Stomach, Percutaneous Endoscopic Approach (ICD-10-PCS; principal; 2021-11-21)
PROC: 5A1D70Z Performance of Urinary Filtration, Intermittent, Less than 6 Hours Per Day (ICD-10-PCS; 2021-11-22)
PROC: 5A1D70Z Performance of Urinary Filtration, Intermittent, Less than 6 Hours Per Day (ICD-10-PCS; 2021-11-25)
PROC: 5A1D70Z Performance of Urinary Filtration, Intermittent, Less than 6 Hours Per Day (ICD-10-PCS; 2021-11-27)
PROC: 5A1D70Z Performance of Urinary Filtration, Intermittent, Less than 6 Hours Per Day (ICD-10-PCS; 2021-11-29)
PROC: 5A1D70Z Performance of Urinary Filtration, Intermittent, Less than 6 Hours Per Day (ICD-10-PCS; 2021-12-04)
PROC: 5A1D70Z Performance of Urinary Filtration, Intermittent, Less than 6 Hours Per Day (ICD-10-PCS; 2021-12-06)
PROC: 5A1D70Z Performance of Urinary Filtration, Intermittent, Less than 6 Hours Per Day (ICD-10-PCS; 2021-12-07)
PROC: 5A1D70Z Performance of Urinary Filtration, Intermittent, Less than 6 Hours Per Day (ICD-10-PCS; 2021-12-09)
PROC: 5A1D70Z Performance of Urinary Filtration, Intermittent, Less than 6 Hours Per Day (ICD-10-PCS; 2021-12-13)
PROC: 5A1D70Z Performance of Urinary Filtration, Intermittent, Less than 6 Hours Per Day (ICD-10-PCS; 2021-12-16)
PROC: 5A1D70Z Performance of Urinary Filtration, Intermittent, Less than 6 Hours Per Day (ICD-10-PCS; 2021-12-18)
DX: E11.649 Type 2 diabetes mellitus with hypoglycemia without coma (principal); A41.89 Other specified sepsis; G92.8 Other toxic encephalopathy; U07.1 COVID-19; J12.82 Pneumonia due to coronavirus disease 2019; E87.1 Hypo-osmolality and hyponatremia; E44.0 Moderate protein-calorie malnutrition; I13.2 Hypertensive heart and chronic kidney disease with heart failure and with stage 5 chronic kidney disease, or end stage renal disease; R64 Cachexia; Z68.1 Body mass index [BMI] 19.9 or less, adult; F03.93 Unspecified dementia, unspecified severity, with mood disturbance; N18.6 End stage renal disease; D63.8 Anemia in other chronic diseases classified elsewhere; K29.60 Other gastritis without bleeding; I49.5 Sick sinus syndrome; I50.9 Heart failure, unspecified; E87.8 Other disorders of electrolyte and fluid balance, not elsewhere classified; I48.0 Paroxysmal atrial fibrillation; I25.10 Atherosclerotic heart disease of native coronary artery without angina pectoris; E11.22 Type 2 diabetes mellitus with diabetic chronic kidney disease; E78.5 Hyperlipidemia, unspecified; E87.5 Hyperkalemia; K59.00 Constipation, unspecified; J44.9 Chronic obstructive pulmonary disease, unspecified; R62.7 Adult failure to thrive; R09.02 Hypoxemia; I95.9 Hypotension, unspecified; F32.A Depression, unspecified; H40.9 Unspecified glaucoma; E83.52 Hypercalcemia; E88.09 Other disorders of plasma-protein metabolism, not elsewhere classified; I07.1 Rheumatic tricuspid insufficiency; I27.21 Secondary pulmonary arterial hypertension; J98.01 Acute bronchospasm; I25.2 Old myocardial infarction; Z99.2 Dependence on renal dialysis; Z93.1 Gastrostomy status; Z79.899 Other long term (current) drug therapy; Z91.15 Patient's noncompliance with renal dialysis; Z95.0 Presence of cardiac pacemaker; Z78.9 Other specified health status; Z79.4 Long term (current) use of insulin; Z79.82 Long term (current) use of aspirin; Z82.3 Family history of stroke; Z82.49 Family history of ischemic heart disease and other diseases of the circulatory system; Z83.3 Family history of diabetes mellitus; Z86.73 Personal history of transient ischemic attack (TIA), and cerebral infarction without residual deficits; Z88.8 Allergy status to other drugs, medicaments and biological substances; Z95.1 Presence of aortocoronary bypass graft
CPT/HCPCS: 36415; 36600; 71045; 73502; 74018; 80048; 80053; 80076; 80202; 81003; 82270; 82306; 82330; 82375; 82550; 82607; 82728; 82746; 82805; 82962; 83036; 83540; 83550; 83735; 83970; 84100; 84145; 84443; 84484; 85014; 85018; 85025; 85027; 85044; 86705; 86706; 86709; 86803; 86850; 86900; 86920; 87340; 87426; 90686; 90935; 92610; 93005; 93306; 94640; 97110; 97116; 97162; 97164; 97166; 97530; 97535; 99291; A6261; C1893; C9113; J0690; J0692; J0696; J0885; J1100; J1644; J1650; J1815; J2250; J2405; J2543; J2704; J2920; J3370; J3490; J7060; J7512; J7608; J7626; P9016; U0003; U0005; A4315